=== PATIENT | male | born 1955 | race Caucasian/White ===

== ENCOUNTER → 2016-09-28 | Outpatient (CLI) | payer MEDICARE ==
[~2016-09-28] VITALS: Ht 190.5 cm; Wt 117.9 kg
[~2016-09-28] MED LIST: ASPI1TAB PO; ATOR1TAB21 PO; LIDOCAINE 2% INJ 100 MG/5 ML SDV (FOR ANES.) As Ordered ONE; MAGN64TASA PO; NS 1,000 ML IV ONE; PEPC1TAB4 PO; PROPOFOL 500 MG/50 ML VIAL As Ordered ONE; VALS1TAB47 PO; metoprolol xl PO
--- NOTE | 2016-09-28 11:52 | ROOR ---
Patient Name: Celso Higginbotham Procedure Date: 09/28/2016 11:34 AM Date of : 1955 Age: 60 Room: [facility] Gender: Male Note Status: Finalized Procedure: Upper GI endoscopy Indications: Epigastric abdominal pain Providers: Nemesio De Leon MD Referring MD: NIKOLAI PEOPLES DO Requesting Provider: Medicines: Monitored Anesthesia Care Complications: No immediate complications. Procedure: Pre-Anesthesia Assessment: - The heart rate, respiratory rate, oxygen saturations, blood pressure, adequacy of pulmonary ventilation, and response to care were monitored throughout the procedure. The Endoscope was introduced through the mouth, and advanced to the second part of duodenum. The upper GI endoscopy was accomplished without difficulty. The patient tolerated the procedure well. Findings: The Z-line was regular and was found 40 cm from the incisors. Evidence of a previous surgical anastomosis was found in the gastric antrum. This was characterized by erythema and an intact staple line. The exam of the duodenum was otherwise normal. Impression: - Z-line regular, 40 cm from the incisors. - A previous surgical anastomosis was found, characterized by erythema and an intact staple line. - No specimens collected. - The examination was otherwise normal. Recommendation: - Patient has a contact number available for emergencies. The signs and symptoms of potential delayed complications were discussed with the patient. Return to normal activities tomorrow. Written discharge instructions were provided to the patient. - Discharge patient to home. - Continue present medications. - Return to referring physician. - The findings and recommendations were discussed with the patient's family. Nemesio De Leon MD Nemesio De Leon MD 09/28/2016 11:52:02 AM This report has been signed electronically. Number of Addenda: 0 Note Initiated On: 09/28/2016 11:34 AM Estimated Blood Loss: Estimated blood loss: none.
--- NOTE | 2016-09-28 12:20 | ROOR ---
Patient Name: Celso Higginbotham Procedure Date: 09/28/2016 11:35 AM Date of : 1955 Age: 60 Room: [facility] Gender: Male Note Status: Finalized Procedure: Colonoscopy to Cecum + Cold Snare Polypectomy + [place] Indications: High risk colon cancer surveillance: Personal history of colonic polyps, Last colonoscopy: 2014 Providers: Nemesio De Leon MD Referring MD: INKOLAI PEOPLES DO Requesting Provider: Medicines: Monitored Anesthesia Care Complications: No immediate complications. Procedure: Pre-Anesthesia Assessment: - The heart rate, respiratory rate, oxygen saturations, blood pressure, adequacy of pulmonary ventilation, and response to care were monitored throughout the procedure. The Colonoscope was introduced through the anus and advanced to the cecum, identified by appendiceal orifice and ileocecal valve. The colonoscopy was performed without difficulty. The patient tolerated the procedure well. The quality of the bowel preparation was excellent. Findings: The perianal and digital rectal examinations were normal. Non-bleeding internal hemorrhoids were found during retroflexion. The hemorrhoids were small and Grade I (internal hemorrhoids that do not prolapse). Scattered small-mouthed diverticula were found in the recto-sigmoid colon, sigmoid colon and descending colon. A medium polyp was found at 10 cm proximal to the anus. The polyp was sessile. The polyp was removed with a cold snare. Resection and retrieval were complete. Multiple sessile polyps were found at 40 cm proximal to the anus. The polyps were medium in size. These polyps were removed with a cold snare. Resection and retrieval were complete. To prevent bleeding after the polypectomy, three hemostatic clips were successfully placed (MR conditional). There was no bleeding at the end of the procedure. A medium polyp was found at 50 cm proximal to the anus. The polyp was sessile. The polyp was removed with a cold snare. Resection and retrieval were complete. A medium polyp was found at 30 cm proximal to the anus. The polyp was sessile. The polyp was removed with a cold snare. Resection and retrieval were complete. The exam was otherwise without abnormality on direct and retroflexion views. Impression: - Non-bleeding internal hemorrhoids. - Diverticulosis in the recto-sigmoid colon, in the sigmoid colon and in the descending colon. - One medium polyp at 10 cm proximal to the anus, removed with a cold snare. Resected and retrieved. - Multiple medium polyps at 40 cm proximal to the anus, removed with a cold snare. Resected and retrieved. Clips (MR conditional) were placed. - One medium polyp at 50 cm proximal to the anus, removed with a cold snare. Resected and retrieved. - One medium polyp at 30 cm proximal to the anus, removed with a cold snare. Resected and retrieved. - The examination was otherwise normal on direct and retroflexion views. - The exam was otherwise normal to the cecum. Recommendation: - Patient has a contact number available for emergencies. The signs and symptoms of potential delayed complications were discussed with the patient. Return to normal activities tomorrow. Written discharge instructions were provided to the patient. - High fiber diet. - Discharge patient to home. - Continue present medications. - Await pathology results. - Telephone GI clinic for pathology results in 1 week. - Repeat colonoscopy for surveillance based on pathology results. - Return to referring physician. - The findings and recommendations were discussed with the patient's family. Nemesio De Leon MD Nemesio De Leon MD 09/28/2016 12:20:17 PM This report has been signed electronically. Number of Addenda: 0 Note Initiated On: 09/28/2016 11:35 AM Estimated Blood Loss: Estimated blood loss: none.
[2016-09-28 12:52] VITALS: BP 150/83
== END ==
LOC: M OPP 10:53
PROVIDERS: ATTEND Internal Medicine Gastroenterology
DX: Z12.11 Encounter for screening for malignant neoplasm of colon (principal); Z86.010 Personal history of colon polyps; Z80.0 Family history of malignant neoplasm of digestive organs; D12.6 Benign neoplasm of colon, unspecified; K57.30 Diverticulosis of large intestine without perforation or abscess without bleeding; K64.0 First degree hemorrhoids; R10.13 Epigastric pain; Z98.0 Intestinal bypass and anastomosis status; I10 Essential (primary) hypertension; E78.00 Pure hypercholesterolemia, unspecified; Z98.84 Bariatric surgery status; F17.200 Nicotine dependence, unspecified, uncomplicated; Z79.82 Long term (current) use of aspirin; Z79.899 Other long term (current) drug therapy; Z88.0 Allergy status to penicillin

== ENCOUNTER 2017-03-29 23:31 | Emergency (ER) | payer MEDICARE ==
[~2017-03-29] VITALS: Ht 190.5 cm; Wt 118.2 kg
[~2017-03-29 23:31] MED LIST changes: -LIDOCAINE 2% INJ 100 MG/5 ML SDV (FOR ANES.) As Ordered ONE; -NS 1,000 ML IV ONE; -PROPOFOL 500 MG/50 ML VIAL As Ordered ONE
[2017-03-29 23:40] VITALS: BP 198/91
[2017-03-29] MEDS ORDERED: IBUP-1022 PO (23:51)
[2017-03-30] MEDS ORDERED: NORCOTAB PO (00:26)
[2017-03-30] MEDS ORDERED: NORCO, ANEXSIA 5/325MG TABLET (HYDROcodone/ACETAMINOPHEN) PO ONE (00:30)
== END 2017-03-30 00:37 | disposition home or self-care (01) ==
LOC: M ED 23:31
DX: G56.02 Carpal tunnel syndrome, left upper limb (principal); F17.210 Nicotine dependence, cigarettes, uncomplicated

== ENCOUNTER → 2020-01-24 | Outpatient (CLI) | payer MEDICARE ==
[~2020-01-24] MED LIST changes: -ASPI1TAB PO; +ASPI81TA26 PO; +HYDR-3715 PO; +HYDR12CA PO; +IBUP-1022 PO; +METO1TAB33 PO; +PARO10TA3 PO; -PEPC1TAB4 PO; +PEPC1TAB5 PO; -VALS1TAB47 PO; +VALS1TAB67 PO
--- NOTE | 2020-02-14 09:34 | REP ---
LOW-DOSE LUNG SCREENING EXAM CLINICAL: Nicotine dependence. TECHNIQUE: Axial noncontrast images from the thoracic inlet to the upper abdomen using low-dose technique. COMPARISON: 10/03/2018. FINDINGS: The bilateral lung reynolds are well-aerated, symmetric, and essentially clear. No consolidation, significant nodule, or mass lesion. No effusion. Tracheobronchial tree is patent. Limited evaluation of the mediastinum demonstrates atherosclerotic changes to the thoracic aorta and coronary arteries. IMPRESSION: Lung-RADS Category 1 no suspicious abnormalities are appreciated. Management and recommendations include annual low-dose surveillance. MTDD
== END ==
LOC: M RAD 13:02
PROVIDERS: ATTEND Family Medicine
DX: Z72.0 Tobacco use (principal)

== ENCOUNTER → 2021-02-28 | Outpatient (CLI) | payer MEDICARE ==
[~2021-02-28] MED LIST changes: +AMLO2.5T3 PO; +IRBE300T12 PO
== END ==
LOC: M LABSMTC 10:30
PROVIDERS: ATTEND Anesthesiology
DX: Z01.812 Encounter for preprocedural laboratory examination (principal); Z20.822 Contact with and (suspected) exposure to COVID-19

== ENCOUNTER 2021-03-05 09:14 | Day surgery (SDC) | payer MEDICARE ==
[~2021-03-05] VITALS: Ht 190.5 cm; Wt 117.0 kg
[~2021-03-05 09:14] MED LIST changes: +NS 1,000 ML IV ONE
--- OUTSIDE RECORDS SUMMARY | 2021-03-05 09:18 | CCD | Continuity of Care Document ---
Author Author Celso PEOPLES D.O. 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 Onset: 11/25/2001 Hyperlipidemia Kaushik Peoples D.O., FAAFP Onset: 06/17 Backache Kaushik Peoples D.O., FAAFP Onset: 04/16 Tobacco user Kaushik Peoples D.O., FAAFP Onset: 04/16 Benign essential hypertension Ryan Sepulveda, RPA Onset: 12/31/2011 Gastroesophageal reflux disease Kaushik Peoples D.O., FAAFP Onset: 06/17/2012 Steatosis of liver Kaushik Peoples D.O., FAAFP Onset: 01/2015 Recurrent depression Kaushik Peoples D.O., FAAFP Onset: 08/2019 Social History Type Date Description Comments Sex Unknown Tobacco Use Start: Unknown End: Unknown Former Cigar ette Smoker 1 1/2 Packs Daily Tobacco Use Start: Unknown End: Unknown Quit at age 56 Tobacco Use Start: Unknown , smoked for 42 years. ETOH Use Occasionally consumes beer Recreational Drug Use Never Used Drugs Tobacco Use Start: Unknown Patient is a current smoker, smo kes every day pk a day Smoking Status Reviewed: 08/15/20 Patient is a current smoker, smokes every day pk a day Allergies, Adverse Reactions, Alerts Active Allergies Reaction Severity Comments Date Penicillin Per PT,When He Was Young Had A Problem 03/23/2002 Medications Active Medications SIG Qnty Indications Ordering Provide r Date [employer] Covid-19 Vaccine 30mcg/0.3ML Suspension botH Kaushik Peoples D.O., FAAFP 08/15/2020 Amlodipine Besylate 2.5mg Tablets 1 by mouth every day 90tabs Kaushik Peoples D.O., FAAFP Sildenafil Citrate 100mg Tablets 1 by mouth every day as needed 14tabs Kaushik Peoples D.O., FAAFP 06/21/2019 Fluocinolone Acetonide 0.01% Cream apply small amount to rash left ankle lightly twice daily 60gm Kaushik Peoples D.O., FAAFP 01/30/2019 Shingrix 50mcg/0.5ML Suspension Re c recieved 1 inj 03/2019 as directed intial then repeat 77 88j 1units Kaushik Peoples D.O. , FAAFP 09/22/2018 Irbesartan-Hydrochlorothiazide 300-12.5mg Tablets 1 by mouth every day 90tabs Kaushik Peoples D.O ., FAAFP 12/28/2017 Paxil 10mg Tablets one by mouth daily 90tabs Kaushik Peoples D.O., FAAFP 04/29/2017 Atorvastatin Calcium 20mg Tablets 1 by mouth every day mdd 1 90tabs Kaushik Peoples D.O., FAA FP 01/26/2013 Famotidine 20mg Tablets take 1 tablet by mouth twice daily 180tabs Kaushik Peoples D.O., FAAFP 0 07/27/2012 Metoprolol Succinate ER 100mg Tablets ER 24HR take 1 tablet by mouth once daily 90tabs Kaushik Peoples D.O., FAAFP 11/21/2010 Asa 81mg take one tablet mona ly. Unknown History Medications Hydrocodone-Ibuprofen 7.5-200mg Ta blets 1 by mouth bid/prn (#[id number]) 30tabs Scot Frazier, FAAFP 07/11/2020 - 07/11/2020 Hydrocodone-Acetaminophen 7.5-325mg Tablets 1 tab by mouth three times a day as need ed for pain. do not drive or operate equipment if taking ([id number]) 21tabs Kaushik Peoples D.O., FAAFP 07/11/2020 - 08/15/2020 Butalbital/Acetaminophen/Caffeine 50-325-40mg Capsules 1-2 po tid 30caps Kaushik Peoples D.O., FAAFP 07/10/2020 - 07/11/2020 Immunizations CPT Code Status Date Vaccine Lot # [id number] Given 02/01/2020 Influenza Virus Vaccine, Quadrivalent, Slit Virus, Im Use 3Y & Up [id number] 56407 Given 02/17/2018 Influenza Virus Vaccine, Quadrivalent, Slit Virus, Im Use 3Y & Up [id number] 61058 Given 01/14/2017 Influenza Virus Vaccine, Quadrivalent, Slit Virus, Im Use 3Y & Up [id number] 74870 Given 04/30/2016 Influenza Virus Vaccine, Quadrivalent, Slit Virus, Im Use 3Y & Up [id number] 14161 Given 03/05/2015 Influenza Vaccin e (Fluzone) 3Yrs Of Age Or Older Medicare Plans [id number] 04222 Given 05/03/2014 Pneumococcal Immunization K0 13316 Q2037 Given 01/30/2014 Influenza Vaccin e (Fluvirin) 3Yrs Of Age Or Older Medicare Plans [id number] 40155 Given 02/02/2013 Influenza Vaccin e (Fluzone) 3Yrs Of Age Or Older Medicare Plans 65045 Given 02/02/2013 Influenza Virus Vac. Split Virus Individuals 3 Years And Above [id number] 19712 Given 03/17/2012 Influenza Virus Vac. Split Virus Individuals 3 Years And Above [id number] 29209 Given 02/23/2011 Influenza Virus Vac. Split Virus Individuals 3 Years And Above [id number] 17656 Given 03/27/2010 Influenza Virus Vac. Split Virus Individuals 3 Years And Above [id number] Vital Signs Date Vital Result Comment 11/28/2020 8:50am BP Systolic 126 mmHg BP Diastolic 82 mmHg Body Temperature 98.0 F Heart Rate 78 /min Respiratory Rate 16 /min Height 75 inches 6'3" Weight 263.00 lb Mccormick Body Weight 196 lb BMI (Body Mass Index) 32.9 kg/m2 O2 % BldC Oximetry 98 % 08/15/2020 8:47am BP Systolic 132 mmHg BP Diastolic 84 mmHg Body Temperature 97.8 F Heart Rate 68 /min Respiratory Rate 16 /min Height 75 inches 6'3" Weight 263.00 lb Mccormick Body Weight 196 lb BMI (Body Mass Index) 32.9 kg/m2 O2 % BldC Oximetry 97 % Results Test Acquired Date Facility Test Result H/L Range Note CBC 11/28/2020 [facility] WBC 6.1 10E3/uL 4.1 - 10.9 1 RBC 4.53 10E6/uL 4.20 - 6.30 HGB 13.6 g/dL 12.0 - 18.0 HCT 41.0 % 37.0 - 51.0 MCV 90.5 fL 80.0 - 97.0 MCH 30.0 pg 26.0 - 32.0 MCHC 33.2 g/dL 31.0 - 36.0 PLT 190 10E3/uL 140 - 440 RDW-CV 12.8 % 11.5 - 14.5 Lym% 26.9 % 10.0 - 58.5 Neut% 65.1 % 37.0 - 92.0 MXD% 8.0 % 0.1 - 24.0 Lym# 1.6 10E3/uL 0.6 - 4.1 Neut# 4.0 % 2.0 - 7.8 MXD# 0.5 10E3/uL 0.0 - 1.8 MPV 10.2 fL 9.0 - 13.0 CMP 11/28/2020 [facility] Glu 126 mg/dL High 70 - 110 BUN 22 mg/dL 8 - 23 Creat 0.7 mg/dL 0.7 - 1.2 BUN/Creatinine Ratio 31.6 CALC Na 137 mmol/L 136 - 145 K 4.1 mmol/L 3.5 - 5.1 CL 102.9 mmol/L 98.0 - 107.0 Co2 23.2 mmol/L 22.0 - 29.0 CA 9.1 mg/dL 8.6 - 10.2 TP 6.8 g/dL 6.6 - 8.7 Alb 4.0 g/dL 3.5 - 5.2 A/G Ratio 1.4 CALC Globulin 2.8 CALC Alp 113.2 U/L 40 - 129 Alt (SGPT) 38 U/L 0 - 41 Ast (Sgot) 31 U/L 0 - 40 Tbili 0.39 mg/dL 0.0 - 1.2 Osmolality-Calculated 279.6 CALC Anion Gap 15 mmol/L eGFR 113 # Calc 2 eGFR Non-Afr. English 98 # Calc 3 Lipid Panel 11/28/2020 [facility] Chol 156 mg/dL 0 - 200 Trig 298 mg/dL High 35 - 200 HDL 39 mg/dL 35 - 55 LDL_C 58 Calc Low 75 - 129 Cho/HDL Ratio 4.0 CALC Laboratory test finding 11/28/2020 [facility] CK 95 U/L 39 - 308 Laboratory test finding 11/28/2020 [facility] Hemoglobin A1c 5.9 % 4.50-6.20 U/A DIP FPA 11/28/2020 [facility]so ci[facility] Color Urine YELLOW Yellow Appearance CLEAR Clear Specific [place] 1.030 1.00-1.03 PH Urine 5.5 5.0-8.0 Glucose Urine NEG Negative Bilirubin Urine NEG Negative Ketones NEG Negative Blood Urine NEG Negative Protein Urine 3+ High Negative Urobilinogen .2 EU/dl 0.2-1.0 Nitrite NEG Negative Leukocytes NEG Negative Microalb/Creat Ratio 08/15/2020 [facility] Alb 150 mg/L Creatinine, Urine 200 mg/dL 10 - 300 A/C Ratio 30 - 300 mg/g % Abnormal CBC 08/15/2020 [facility] WBC 7.3 10E3/uL 4.1 - 10.9 RBC 4.59 10E6/uL 4.20 - 6.30 HGB 14.1 g/dL 12.0 - 18.0 HCT 41.2 % 37.0 - 51.0 MCV 89.8 fL 80.0 - 97.0 MCH 30.7 pg 26.0 - 32.0 MCHC 34.2 g/dL 31.0 - 36.0 PLT 179 10E3/uL 140 - 440 RDW-CV 12.5 % 11.5 - 14.5 Lym% 24.3 % 10.0 - 58.5 Neut% 66.6 % 37.0 - 92.0 MXD% 9.1 % 0.1 - 24.0 Lym# 1.8 10E3/uL 0.6 - 4.1 Neut# 4.8 % 2.0 - 7.8 MXD# 0.7 10E3/uL 0.0 - 1.8 MPV 10.3 fL 9.0 - 13.0 CMP 08/15/2020 [facility] Glu 130 mg/dL High 70 - 110 BUN 19 mg/dL 8 - 23 Creat 0.7 mg/dL 0.7 - 1.2 BUN/Creatinine Ratio 27.0 Calc Na 137 mmol/L 136 - 145 K 4.1 mmol/L 3.5 - 5.1 CL 99.8 mmol/L 98.0 - 107.0 Co2 26.4 mmol/L 22.0 - 29.0 CA 9.4 mg/dL 8.6 - 10.2 TP 7.3 g/dL 6.6 - 8.7 Alb 4.3 g/dL 3.5 - 5.2 A/G Ratio 1.4 Calc Globulin 3.0 Calc Alp 140.9 U/L High 40 - 129 Alt (SGPT) 34 U/L 0 - 41 Ast (Sgot) 24 U/L 0 - 40 Tbili 0.41 mg/dL 0.0 - 1.2 Osmolality-Calculated 277.1 Calc Anion Gap 15 mmol/L eGFR 113 # Calc 4 eGFR Non-Afr. English 98 # Calc 5 Lipid Panel 08/15/2020 [facility] Chol 167 mg/dL 0 - 200 Trig 356 mg/dL High 35 - 200 HDL 40 mg/dL 35 - 55 LDL_C 56 Calc Low 75 - 129 Cho/HDL Ratio 4.2 Calc Laboratory test finding 08/15/2020 [facility] CK 83 U/L 39 - 308 Hemoglobin A1c 5.9 % 4.40 - 6.10 U/A DIP FPA 08/15/2020 [facility] Asso ciates Color Urine YELLOW Yellow Appearance CLEAR Clear Specific [place] 1.030 1.00-1.03 PH Urine 6.0 5.0-8.0 Glucose Urine NEG Negative Bilirubin Urine NEG Negative Ketones NEG Negative Blood Urine NEG Negative Protein Urine 3+ High Negative Urobilinogen .2 EU/dl 0.2-1.0 Nitrite NEG Negative Leukocytes NEG Negative 1 NORMAL RANGES Age WBC RBC HGB HCT MCV PLT Adult M 4.1-10.9 4.20-6.30 12.0-18.0 37.0-51.0 80-97 140-440 Adult F 4.1-10.9 4.04-5.48 12.0-18.0 37.0-51.0 80-97 140-440 0 -1 Yr 5.0-20.0 3.9-5.9 15-18 MV: 44 MV: 91 MV: 277 2-9 Yr. 6.0-17.0 3.8-5.4 11-13 MV: 37 MV: 78 MV: 300 10 Yrs. 5.0-13.0 3.8-5.4 12-15 MV: 39 MV: 80 MV: 250 NOTE: * FOR ADULT BLACK MALES AND FEMALES, NORMAL WBC IS 2.9-7.7 K/ML * FOR ADULT BLACK MALES AND FEMALES, NORMAL RBC,HGB, AND HCT IS 5% LESS SOURCE FOR DATA: [employer] 1800 OPERATION MANUAL( AUTOMATED BLOOD COUNTS AND DIFF.) APPENDIX B-3 CHRONIC KIDNEY DISEASE STAGING PER NKF: MALE GFR INTERPRETATION: 20-49 YRS: >60 mL/min Normal 50-59 YRS: >56 mL/min Normal 60-69 YRS: >49 mL/min Normal 70-79 YRS: >42 mL/min Normal 80 and above >35 mL/min Normal FEMALE GRF INTERPRETATION: 20-39 YRS: >60 mL/min Normal 40-49 YRS: >58 mL/min Normal 50-59 YRS: >51 mL/min Normal 60-69 YRS: >45 mL/min Normal 70-79 YRS: >39 mL/min Normal 80 and above >32 mL/min NormalCLASSIFICATION CHOLESTEROL FOR ADULTS CHILDREN/ADOLESCENTS* DESIRABLE: <200 MG/DL <170 MG/DL BORDER-LINE HIGH RISK: 200-239 MG/DL 170-199 MG/DL HIGH RISK: >240 MG/DL >200 MG/DL CLASS. FOR PRIMARY LDL CHOL PREVENTION: LDL CHOL-CHILD/ADOLESCENTS* DESIRABLE: <130 MG/DL <110 MG/DL BORDERLINE-HIGH RISK: 130-159 MG/DL 110-129 MG/DL HIGH RISK: >160 MG/DL >130 MG/DL *CHILDREN AND ADOLESCENTS REPRESENTS INDIVIDUALA AGED 2-19 YEARS EXCLUSIVE. 2 CKD-EPI 3 CKD-EPI 4 CKD-EPI 5 CKD-EPI Procedures Date Code Description Status 11/28/2020 72043 Office/Outpatient Established Mo d MDM 30-39 Min Completed 08/15/2020 52825 Office/Outpatient Established Mo d MDM 30-39 Min Completed 07/19/2020 69878 Office/Outpatient Established Lo w MDM 20-29 Min Completed 07/10/2020 51942 Office/Outpatient Established Lo w MDM 20-29 Min Completed Medical Devices Description No Information Available Encounters Type Date Location Provider Dx Diagnosis Office Visit 11/28/2020 8:45a [place] [facility] Geno Frazier, FAAFP R73.01 Impaired fasting glucose E78.5 Hyperlipidemia, unspecified I10 Essential (primary) hyperten jarad K21.9 Gastro-esophageal reflux dis ease without esophagitis Z72.0 Tobacco use F33.8 Other recurrent depressive d isorders Office Visit 08/15/2020 8:45a [place] [facility] Geno Frazier, FAAFP R73.01 Impaired fasting glucose E78.5 Hyperlipidemia, unspecified I10 Essential (primary) hyperten jarad K21.9 Gastro-esophageal reflux dis ease without esophagitis Z72.0 Tobacco use F33.8 Other recurrent depressive d isorders Office Visit 07/19/2020 11:15a [place] [facility] Ryan Sepulveda, RP A S23.41xS Sprain of ribs, sequela Office Visit 07/10/2020 10:20a [place] [facility] Ryan Sepulveda, RP A S23.41xA Sprain of ribs, initial encounter M25.512 Pain in left shoulder Assessments Date Code Description Provider 11/28/2020 R73.01 Impaired fasting glucose Kaushik Peoples D.O., FAAFP 11/28/2020 E78.5 Hyperlipidemia, unspecified Flip Peoples D.O., FAAFP 11/28/2020 I10 Essential (primary) hypertension Kaushik Peoples D.O., FAAFP 11/28/2020 K21.9 Gastro-esophageal reflux disease without esophagitis Kaushik Peoples D.O., FAAFP 11/28/2020 Z72.0 Tobacco use Kaushik Peoples D.O., FAAFP 11/28/2020 F33.8 Other recurrent depressive disor ders Kaushik Peoples D.O., FAAFP 08/15/2020 R73.01 Impaired fasting glucose Kaushik Peoples D.O., FAAFP 08/15/2020 E78.5 Hyperlipidemia, unspecified Flip Peoples D.O., FAAFP 08/15/2020 I10 Essential (primary) hypertension Kaushik Peoples D.O., FAAFP 08/15/2020 K21.9 Gastro-esophageal reflux disease without esophagitis Kaushik Peoples D.O., FAAFP 08/15/2020 Z72.0 Tobacco use Kaushik Peoples D.O., FAAFP 08/15/2020 F33.8 Other recurrent depressive disor ders Kaushik Peoples D.O., FAAFP 07/19/2020 S23.41xS Sprain of ribs, sequela Ryan Sepulveda, RPA 07/10/2020 S23.41xA Sprain of ribs, initial encounte r Ryan Sepulveda, RPA 07/10/2020 M25.512 Pain in left shoulder Lawanda Sepulveda, RPA Plan of Treatment Future Appointment(s):* 03/04/2021 8:45 am - Kaushik Peoples D.O., [facility] at [place] [facility] Functional Status Description No Information Available Mental Status Description No Information Available Referrals Description No Information Available
--- OUTSIDE RECORDS SUMMARY | 2021-03-05 09:18 | CCD | Continuity of Care Document ---
Author Author Celso DE LEON M.D. 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 Onset: 10/14/2017 Abdominal pain Nemesio De Leon M.D. Onset: 09/04/19 17 Social History Type Date Description Comments Sex Unknown ETOH Use Occasionally Tobacco Use Start: Unknown Patient is a current smoker, smo kes every day Tobacco Use Start: Unknown Heavy tobacco smoker (more than 10 cigarettes/day) Allergies, Adverse Reactions, Alerts Active Allergies Criticality Reaction | Severity Comments Date Penicillin Unable to assess criticality 09/03/2016 Medications Active Medications SIG Qnty Indications Ordering Provide r Date [employer] [id number] Tablets as directed 1box Nemesio De Leon M.D. 01/07/2021 Famotidine 20mg Tablets Unknown Metoprolol Succinate ER 100mg Tablets ER 24HR Unknown Atorvastatin Calcium 20mg Tablets Unknown Aspirin 81mg Tablets DR Unknown Paroxetine HCL 10mg Tablets Unknown Hydrochlorothiazide 12.5mg Capsules Unknown Irbesartan-Hydrochlorothiazide 300-12.5mg Tablets Take 1 Tablet By Mouth Once Daily . DO Not Exceed 1 Per 24 Hours Unknown Amlodipine Besylate 2.5mg Tablets Take 1 Tablet By Mouth Once Daily Unknown Immunizations Description No Information Available Vital Signs Date Vital Result Comment 01/07/2021 2:52pm Height 75 inches 6'3" Weight 264.00 lb BP Systolic 132 mmHg BP Diastolic 79 mmHg Heart Rate 63 /min BMI (Body Mass Index) 33.0 kg/m2 Weight 119.750 kg Body Temperature 97.0 F 10/14/2017 10:21am Height 75 inches 6'3" Weight 259.00 lb BP Systolic 130 mmHg BP Diastolic 79 mmHg Heart Rate 89 /min BMI (Body Mass Index) 32.4 kg/m2 Weight 117.482 kg Results Description No Information Available Procedures Date Code Description Status 01/07/2021 54352 Office/Outpatient New Low MDM 30 -44 Minutes Completed Medical Devices Description No Information Available Encounters Type Date Location Provider Dx Diagnosis Office Visit 01/07/2021 2:30p Main Office Nemesio De Leon M.D. Z 86.010 Personal history of colonic polyps Assessments Date Code Description Provider 01/07/2021 Z86.010 Personal history of colonic poly ps Nemesio De Leon M.D. Plan of Treatment Future Appointment(s):* 03/05/2021 12:30 pm - Nemesio De Leon M.D. at Main Office 01/07/2021 - Nemesio De Leon M.D.* Z86.010 Personal history of colonic polyps* Comments:* 65 yo wm who presents for a colonoscopy due to a h/o colonic polyps. Last scope was in 2018. No c/o abdominal pain, weight loss, change in bowel habits, or rectal bleeding. No family h/o colon cancer. No h/o chest pain, or sob. Plan:1.Schedule patient for Colonoscopy. 2. Informed consent given.3. Advised to stop asa, plavix,and anticoagulation 3 to 7 days prior to the procedures. Functional Status Description No Information Available Mental Status Description No Information Available Referrals Description No Information Available
--- OUTSIDE RECORDS SUMMARY | 2021-03-05 09:18 | CCD ---
Continuity of Care Document (CCD) Created on: 03/04/2021 Celso Wood External Reference #: [id number] : [id number] Sex: Male Author Author Celso PEOPLES D.O. Organization Unknown Address [address] [place] [id number] Phone [phone] Care Team Providers Care Spectroscopist Name Role Phone [facility] - Orthopedic/Phys/Osteo AUTM [phone] Problems Active Problems Provider Date Psoriasis Jovan [...] day pk a day Smoking Status Reviewed: 03/04/21 Patient is a current smoker, smokes every day pk a day Allergies and adverse reactions Active Allergies Criticality Reaction | Severity Comments Date Penicillin Unable to assess criticality Per PT,When He Was Young Had A Problem 03/23/2002 Medications Active Medications SIG Qnty Indications Ordering Provide r Date Ginx Covid-19 Vaccine 30mcg/0.3ML Suspension botH had booster Kaushik Peoples D.O., FAAFP 08/15/2020 Amlodipine Besylate [...] Tablets 1 by mouth every day 90tabs Lizet Frazier, FAAFP 12/28/2017 Paxil 10mg Tablets one by [...] 81mg take one tablet mona ly. Unknown Immunizations CPT Code Status Date Vaccine Lot # [id number] Given 03/04/2021 Influenza Virus Vaccine, Quadrivalent, Slit Virus, Im Use 3Y & Up 81230 Given 02/01/2020 Influenza Virus Vaccine, Quadrivalent, Slit Virus, Im Use 3Y & Up [id number] 35579 Given 02/17/2018 Influenza Virus Vaccine, Quadrivalent, Slit Virus, Im Use 3Y & Up [id number] 64036 Given 01/14/2017 Influenza Virus Vaccine, Quadrivalent, Slit Virus, Im Use 3Y & Up [id number] 55950 Given 04/30/2016 Influenza Virus Vaccine, Quadrivalent, Slit Virus, Im Use 3Y & Up [id number] 33381 Given 03/05/2015 Influenza Vaccin e (Fluzone) 3Yrs Of Age Or Older Medicare Plans [id number] 77402 Given 05/03/2014 Pneumococcal Immunization [id number] Q2037 Given 01/30/2014 Influenza Vaccin e (Fluvirin) 3Yrs Of Age Or Older Medicare Plans [id number] 42983 Given 02/02/2013 Influenza Vaccin e (Fluzone) 3Yrs Of Age Or Older Medicare Plans 69862 Given 02/02/2013 Influenza Virus Vac. Split Virus Individuals 3 Years And Above [id number] 60273 Given 03/17/2012 Influenza Virus Vac. Split Virus Individuals 3 Years And Above [id number] 86850 Given 02/23/2011 Influenza Virus Vac. Split Virus Individuals 3 Years And Above [id number] 67459 Given 03/27/2010 Influenza Virus Vac. Split Virus Individuals 3 Years And Above [id number] Vital Signs Date Vital Result Comment 03/04/2021 8:51am BP Systolic 142 mmHg BP Diastolic 82 mmHg Body Temperature 97.7 F Heart Rate 82 /min Respiratory Rate 16 /min Height 75 inches 6'3" Weight 262.00 lb [place] Body Weight 196 lb BMI (Body Mass Index) 32.7 kg/m2 O2 % BldC Oximetry 97 % 11/28/2020 8:50am BP Systolic 126 mmHg BP Diastolic 82 mmHg Body Temperature 98.0 F Heart Rate 78 /min Respiratory Rate 16 /min Height 75 inches 6'3" Weight 263.00 lb [place] Body Weight 196 lb BMI (Body Mass Index) 32.9 kg/m2 O2 % BldC Oximetry 98 % Results Test Acquired Date Facility Test Result H/L Range Note Laboratory test finding 03/04/2021 [facility] CK <pending> CBC 11/28/2020 [facility] WBC 6.1 10E3/uL 4.1 [...] eGFR 113 # Calc 2 eGFR Non-Afr. Colombian 98 # Calc 3 Lipid Panel 11/28/2020 [facility] Chol 156 mg/dL 0 - 200 Trig 298 mg/dL High 35 - 200 HDL 39 mg/dL 35 - 55 LDL_C 58 Calc Low 75 - 129 Cho/HDL Ratio 4.0 CALC Laboratory test finding 11/28/2020 [facility] CK 95 U/L 39 - 308 Laboratory test finding 11/28/2020 [facility] Hemoglobin A1c 5.9 % 4.50-6.20 U/A DIP [facility] 11/28/2020 [facility] Color Urine YELLOW Yellow Appearance CLEAR Clear Specific [place] 1.030 1.00-1.03 PH Urine 5.5 5.0-8.0 Glucose [...] HCT IS 5% LESS SOURCE FOR DATA: [employer] DYN 1800 OPERATION MANUAL( AUTOMATED BLOOD COUNTS AND [...] 2-19 YEARS EXCLUSIVE. 2 CKD-EPI 3 CKD-EPI Procedures Date Code Description Status 03/04/2021 77606 Office/Outpatient Established Mo d MDM 30-39 Min Completed 11/28/2020 65952 Office/Outpatient Established Mo d MDM 30-39 Min Completed Medical Devices Description No Information Available Encounters Type Date Location Provider Dx Diagnosis Office Visit 03/04/2021 8:45a [facility] Geno Frazier, FAAFP E78.5 Hyperlipidemia, unspecified I10 Essential (primary) hyperten jarad K21.9 Gastro-esophageal reflux dis ease without esophagitis Z72.0 Tobacco use F33.8 Other recurrent depressive d isorders Office Visit 11/28/2020 8:45a [facility] Geno Frazier, FAAFP R73.01 Impaired fasting glucose E78.5 Hyperlipidemia, unspecified I10 Essential (primary) hyperten jarad K21.9 Gastro-esophageal reflux dis ease without esophagitis Z72.0 Tobacco use F33.8 Other recurrent depressive d isorders Assessments Date Code Description Provider 03/04/2021 E78.5 Hyperlipidemia, unspecified Flip Peoples D.O., [facility] 03/04/2021 I10 Essential (primary) hypertension Kaushik Peoples D.O., [facility] 03/04/2021 K21.9 Gastro-esophageal reflux disease without esophagitis Kaushik Peoples D.O., [facility] 03/04/2021 Z72.0 Tobacco use Kaushik Peoples D.O., [facility] 03/04/2021 F33.8 Other recurrent depressive disor ders Kaushik Peoples D.O., [facility] 11/28/2020 R73.01 Impaired fasting glucose Kaushik Peoples D.O., [facility] 11/28/2020 E78.5 Hyperlipidemia, unspecified Flip Peoples D.O., [facility] 11/28/2020 I10 Essential (primary) hypertension Kaushik Peoples D.O., [facility] 11/28/2020 K21.9 Gastro-esophageal reflux disease without esophagitis Kaushik Peoples D.O., [facility] 11/28/2020 Z72.0 Tobacco use Kaushik Peoples D.O., [facility] 11/28/2020 F33.8 Other recurrent depressive disor ders Kaushik Peoples D.O., FAAFP Plan of Treatment Future Appointment(s):* 06/12/2021 8:45 am - Kaushik Peoples D.O., FAAFP at [facility] Functional Status Description No Information Available Mental Status Description No Information Available Referrals Description No Information Available
--- OUTSIDE RECORDS SUMMARY | 2021-03-05 09:19 | CCD ---
Author Author [facility] Organization [facility] Address Unknown Phone Unavailable Care Team Providers Care Military Nurse Name Role Phone Armen De Leon MD Unavailable Unavailable Armen De Leon MD Unavailable Unavailable Armen De Leon MD Unavailable Unavailable Armen De Leon MD Unavailable Unavailable Armen De Leon MD Unavailable Unavailable Armen De Leon MD Unavailable Unavailable Armen De Leon MD Unavailable Unavailable Armen De Leon MD Unavailable Unavailable Armen De Leon MD Unavailable Unavailable Armen De Leon MD Unavailable Unavailable Armen De Leon MD Unavailable Unavailable Armen De Leon MD Unavailable Unavailable Armen De Leon MD Unavailable Unavailable Armen De Leon MD Unavailable Unavailable Armen De Leon MD Unavailable Unavailable Armen De Leon MD Unavailable Unavailable Armen De Leon MD Unavailable Unavailable Armen De Leon MD Unavailable Unavailable Armen De Leon MD Unavailable Unavailable Armen De Leon MD Unavailable Unavailable Armen De Leon MD Unavailable Unavailable Armen De Leon MD Unavailable Unavailable Armen De Leon MD Unavailable Unavailable Armen De Leon MD Unavailable Unavailable Armen De Leon MD Unavailable Unavailable Armen De Leon MD Unavailable Unavailable Armen De Leon MD Unavailable Unavailable Moises, S Nemesio MD Unavailable Unavailable Moises, S Nemesio MD Unavailable Unavailable Moises, S Nemesio MD Unavailable Unavailable Moises, S Nemesio MD Unavailable Unavailable Moises, S Nemesio MD Unavailable Unavailable Moises, S Nemesio MD Unavailable Unavailable Moises, S Nemesio MD Unavailable Unavailable Moises, S Nemesio MD Unavailable Unavailable Moises, S Nemesio MD Unavailable Unavailable Moises, S Nemesio MD Unavailable Unavailable Moises, S Nemesio MD Unavailable Unavailable Moises, S Nemesio MD Unavailable Unavailable Moises, S Nemesio MD Unavailable Unavailable Moises, S Nemesio MD Unavailable Unavailable Moises, S Nemesio MD Unavailable Unavailable Moises, S Nemesio MD Unavailable Unavailable Moises, S Nemesio MD Unavailable Unavailable Moises, S Nemesio MD Unavailable Unavailable Moises, S Nemesio MD Unavailable Unavailable Moises, S Nemesio MD Unavailable Unavailable Moises, S Nemesio MD Unavailable Unavailable Moises, S Nemesio MD Unavailable Unavailable Moises, S Nemesio MD Unavailable Unavailable Coco, D Ryan PA Unavailable Unavailable Coco, D Ryan PA Unavailable Unavailable Coco, D Ryan PA Unavailable Unavailable Coco, D Ryan PA Unavailable Unavailable Coco, D Ryan PA Unavailable Unavailable Coco, D Ryan PA Unavailable Unavailable Coco, D Ryan PA Unavailable Unavailable Coco, D Ryan PA Unavailable Unavailable Coco, D Ryan PA Unavailable Unavailable Coco, D Ryan PA Unavailable Unavailable Coco, D Ryan PA Unavailable Unavailable Coco, D Ryan PA Unavailable Unavailable Coco, D Ryan PA Unavailable Unavailable Coco, D Ryan PA Unavailable Unavailable Coco, D Ryan PA Unavailable Unavailable Coco, D Ryan PA Unavailable Unavailable Coco, D Ryan PA Unavailable Unavailable Coco, D Ryan PA Unavailable Unavailable Coco, D Ryan PA Unavailable Unavailable Coco, D Ryan PA Unavailable Unavailable Coco, D Ryan PA Unavailable Unavailable Coco, D Ryan PA Unavailable Unavailable Coco, D Ryan PA Unavailable Unavailable Coco, D Ryan PA Unavailable Unavailable Coco, D Ryan PA Unavailable Unavailable Coco, D Ryan PA Unavailable Unavailable Coco, D Ryan PA Unavailable Unavailable Coco, D Ryan PA Unavailable Unavailable Coco, D Ryan PA Unavailable Unavailable Coco, D Ryan PA Unavailable Unavailable Coco, D Ryan PA Unavailable Unavailable Coco, D Ryan PA Unavailable Unavailable Coco, D Ryan PA Unavailable Unavailable Coco, D Ryan PA Unavailable Unavailable Coco, D Ryan PA Unavailable Unavailable Coco, D Ryan PA Unavailable Unavailable Coco, D Ryan PA Unavailable Unavailable Coco, D Ryan PA Unavailable Unavailable Coco, D Ryan PA Unavailable Unavailable Coco, D Ryan PA Unavailable Unavailable Coco, D Ryan PA Unavailable Unavailable Coco, D Ryan PA Unavailable Unavailable Coco, D Ryan PA Unavailable Unavailable Coco, D Ryan PA Unavailable Unavailable Coco, D Ryan PA Unavailable Unavailable Coco, D Ryan PA Unavailable Unavailable Coco, D Ryan PA Unavailable Unavailable Coco, D Ryan PA Unavailable Unavailable Coco, D Ryan PA Unavailable Unavailable Coco, D Ryan PA Unavailable Unavailable Coco, D Ryan PA Unavailable Unavailable Coco, D Ryan PA Unavailable Unavailable Coco, D Ryan PA Unavailable Unavailable Coco, D Ryan PA Unavailable Unavailable Coco, D Ryan PA Unavailable Unavailable Coco, D Ryan PA Unavailable Unavailable Coco, D Ryan PA Unavailable Unavailable Coco, D Ryan PA Unavailable Unavailable Coco, D Ryan PA Unavailable Unavailable Coco, D Ryan PA Unavailable Unavailable Coco, D Ryan PA Unavailable Unavailable Coco, D Ryan PA Unavailable Unavailable Coco, D Ryan PA Unavailable Unavailable Coco, D Ryan PA Unavailable Unavailable Coco, D Ryan PA Unavailable Unavailable Coco, D Ryan PA Unavailable Unavailable Coco, D Ryan PA Unavailable Unavailable Coco, D Ryan PA Unavailable Unavailable Fish, J Kaushik Unavailable Unavailable Fish, J Kaushik Unavailable Unavailable Fish, J Kaushik Unavailable Unavailable Fish, J Kaushik Unavailable Unavailable Fish, J Kaushik Unavailable Unavailable Fish, J Kaushik Unavailable Unavailable Fish, J Kaushik Unavailable Unavailable Fish, J Kaushik Unavailable Unavailable Fish, J Kaushik Unavailable Unavailable Fish, J Kaushik Unavailable Unavailable Fish, J Kaushik Unavailable Unavailable Fish, J Kaushik Unavailable Unavailable Fish, J Kaushik Unavailable Unavailable Fish, J Kaushik Unavailable Unavailable Fish, J Kaushik Unavailable Unavailable Fish, J Kaushik Unavailable Unavailable Fish, J Kaushik Unavailable Unavailable Fish, J Kaushik Unavailable Unavailable Fish, J Kaushik Unavailable Unavailable Fish, J Kauhsik Unavailable Unavailable Fish, J Kaushik Unavailable Unavailable Fish, J Kaushik Unavailable Unavailable Fish, J Kaushik Unavailable Unavailable Fish, J Kaushik Unavailable Unavailable Fish, J Kaushik Unavailable Unavailable Fish, J Kaushik Unavailable Unavailable Fish, J Kaushik Unavailable Unavailable Fish, J Kaushik Unavailable Unavailable Fish, J Kaushik Unavailable Unavailable Fish, J Kaushik Unavailable Unavailable Fish, J Kaushik Unavailable Unavailable Fish, J Kaushik Unavailable Unavailable Fish, J Kaushik Unavailable Unavailable Fish, J Kaushik Unavailable Unavailable Fish, J Kaushik Unavailable Unavailable Fish, J Kaushik Unavailable Unavailable Fish, J Kaushik Unavailable Unavailable Fish, J Kaushik Unavailable Unavailable Fish, J Kaushik Unavailable Unavailable Fish, J Kaushik Unavailable Unavailable Fish, J Kaushik Unavailable Unavailable Fish, J Kaushik Unavailable Unavailable Fish, J Kaushik Unavailable Unavailable Fish, J Kaushik Unavailable Unavailable Fish, J Kaushik Unavailable Unavailable Fish, J Kaushik Unavailable Unavailable Fish, J Kaushik Unavailable Unavailable Fish, J Kaushik Unavailable Unavailable Fish, J Kaushik Unavailable Unavailable Fish, J Kaushik Unavailable Unavailable Fish, J Kaushik Unavailable Unavailable Fish, J Kaushik Unavailable Unavailable Fish, J Kaushik Unavailable Unavailable Fish, J Kaushik Unavailable Unavailable Fish, J Kaushik Unavailable Unavailable Fish, J Kaushik Unavailable Unavailable Fish, J Kaushik Unavailable Unavailable Fish, J Kaushik Unavailable Unavailable Fish, J Kaushik Unavailable Unavailable Fish, J Kaushik Unavailable Unavailable Fish, J Kaushik Unavailable Unavailable Fish, J Kaushik Unavailable Unavailable Fish, J Kaushik Unavailable Unavailable Fish, J Kaushik Unavailable Unavailable Fish, J Kaushik Unavailable Unavailable Fish, J Kaushik Unavailable Unavailable Fish, J Kaushik Unavailable Unavailable Fish, J Kaushik Unavailable Unavailable Fish, J Kaushik Unavailable Unavailable Fish, J Kaushik Unavailable Unavailable Fish, J Kaushik Unavailable Unavailable Fish, J Kaushik Unavailable Unavailable Fish, J Kaushik Unavailable Unavailable Fish, J Kaushik Unavailable Unavailable Fish, J Kaushik Unavailable Unavailable Fish, J Kaushik Unavailable Unavailable Fish, J Kaushik Unavailable Unavailable Fish, J Kaushik Unavailable Unavailable Fish, J Kaushik Unavailable Unavailable Fish, J Kaushik Unavailable Unavailable Fish, J Kaushik Unavailable Unavailable Fish, J Kaushik Unavailable Unavailable Fish, J Kaushik Unavailable Unavailable Fish, J Kaushik Unavailable Unavailable Fish, J Kaushik Unavailable Unavailable Fish, J Kaushik Unavailable Unavailable Fish, J Kaushik Unavailable Unavailable Fish, J Kaushik Unavailable Unavailable Fish, J Kaushik Unavailable Unavailable Fish, J Kaushik Unavailable Unavailable Fish, J Kaushik Unavailable Unavailable Fish, J Kaushik Unavailable Unavailable Fish, J Kaushik Unavailable Unavailable Fish, J Kaushik Unavailable Unavailable Fish, J Kaushik Unavailable Unavailable Fish, J Kaushik Unavailable Unavailable Fish, J Kaushik Unavailable Unavailable Fish, J Kaushik Unavailable Unavailable Fish, J Kaushik Unavailable Unavailable Fish, J Kaushik Unavailable Unavailable Fish, J Kaushik Unavailable Unavailable Fish, J Kaushik Unavailable Unavailable Fish, J Kaushik Unavailable Unavailable Fish, J Kaushik Unavailable Unavailable Fish, J Kaushik Unavailable Unavailable Fish, J Kaushik Unavailable Unavailable Fish, J Kaushik Unavailable Unavailable Fish, J Kaushik Unavailable Unavailable Fish, J Kaushik Unavailable Unavailable Fish, J Kaushik Unavailable Unavailable Fish, J Kaushik Unavailable Unavailable Fish, J Kaushik Unavailable Unavailable Fish, J Kaushik Unavailable Unavailable Fish, J Kaushik Unavailable Unavailable Fish, J Kaushik Unavailable Unavailable Fish, J Kaushik Unavailable Unavailable Fish, J Kaushik Unavailable Unavailable Fish, J Kaushik Unavailable Unavailable Fish, J Kaushik Unavailable Unavailable Fish, J Kaushik Unavailable Unavailable Fish, J Kaushik Unavailable Unavailable Fish, J Kaushik Unavailable Unavailable Fish, J Kaushik Unavailable Unavailable Fish, J Kaushik Unavailable Unavailable Fish, J Kaushik Unavailable Unavailable Fish, J Kaushik Unavailable Unavailable Fish, J Kaushik Unavailable Unavailable Fish, J Kaushik Unavailable Unavailable Fish, J Kaushik Unavailable Unavailable Fish, J Kaushik Unavailable Unavailable Fish, J Kaushik Unavailable Unavailable Fish, J Kaushik Unavailable Unavailable Fish, J Kaushik Unavailable Unavailable Fish, J Kaushik Unavailable Unavailable Fish, J Kaushik Unavailable Unavailable Fish, J Kaushik Unavailable Unavailable Fish, J Kaushik Unavailable Unavailable Fish, J Kaushik Unavailable Unavailable Fish, J Kaushik Unavailable Unavailable Fish, J Kaushik Unavailable Unavailable Fish, J Kaushik Unavailable Unavailable Fish, J Kaushik Unavailable Unavailable Fish, J Kaushik Unavailable Unavailable Fish, J Kaushik Unavailable Unavailable Fish, J Kaushik Unavailable Unavailable Fish, J Kaushik Unavailable Unavailable Fish, J Kaushik Unavailable Unavailable Fish, J Kaushik Unavailable Unavailable Fish, J Kaushik Unavailable Unavailable Fish, J Kaushik Unavailable Unavailable Fish, J Kaushik Unavailable Unavailable Fish, J Kaushik Unavailable Unavailable Fish, J Kaushik Unavailable Unavailable Fish, J Kaushik Unavailable Unavailable Fish, J Kaushik Unavailable Unavailable Fish, J Kaushik Unavailable Unavailable Fish, J Kaushik Unavailable Unavailable Fish, J Kaushik Unavailable Unavailable Fish, J Kaushik Unavailable Unavailable Fish, J Kaushik Unavailable Unavailable Fish, J Kaushik Unavailable Unavailable Fish, J Kaushik Unavailable Unavailable Fish, J Kaushik Unavailable Unavailable Fish, J Kaushik Unavailable Unavailable Fish, J Kaushik Unavailable Unavailable Fish, J Kaushik Unavailable Unavailable Fish, J Kaushik Unavailable Unavailable Fish, J Kaushik Unavailable Unavailable Re-disclosure Warning The records that you are about to access may contain information from federally-assisted alcohol or drug abuse programs. If such information is present, then the following federally mandated warning applies: This information has been disclosed to you from records protected by federal confidentiality rules (42 CFR part 2). The federal rules prohibit you from making any further disclosure of this information unless further disclosure is expressly permitted by the written consent of the person to whom it pertains or as otherwise permitted by 42 CFR part 2. A general authorization for the release of medical or other information is NOT sufficient for this purpose. The Federal rules restrict any use of the information to criminally investigate or prosecute any alcohol or drug abuse patient.The records that you are about to access may contain highly sensitive health information, the redisclosure of which is protected by Article 27-F of the [facility] Public Health law. If you continue you may have access to information: Regarding HIV / AIDS; Provided by facilities licensed or operated by the [facility] Office of Mental Health; or Provided by the [facility] Office for People With Developmental Disabilities. If such information is present, then the following [facility] mandated warning applies: This information has been disclosed to you from confidential records which are protected by state law. State law prohibits you from making any further disclosure of this information without the specific written consent of the person to whom it pertains, or as otherwise permitted by law. Any unauthorized further disclosure in violation of state law may result in a fine or nursing home sentence or both. A general authorization for the release of medical or other information is NOT sufficient authorization for further disc losure. Allergies and Adverse Reactions Type Description Substance Reaction Status Data Source(s ) [facility] Family History Family Member Name Family Member Gender Family Member Status Date o f Status Description Data Source(s) Unknown Male Problem [facility] ([facility]) Unknown Female Problem [facility] ([facility] Encounters Encounter Providers Location Date Indications Data Source(s ) Outpatient Attender: Kaushik [facility] 03/04/2021 08:45:0 0 AM EDT [facility] ([facility] Outpatient Attender: Nemesio De Leon MD Main Office 01/07/2021 02:30:00 PM EDT [facility] ([facility]) Outpatient Attender: Kaushik [facility] 11/28/2020 08:45:0 0 AM EDT [facility] ([facility] Outpatient Attender: Kaushik [facility] 08/15/2020 08:45:0 0 AM EDT [facility] ([facility] Outpatient Attender: Ryan CASEY [facility] 09/2020 10:15:00 AM EST [facility] Out[facility] Attender: Ryan CASEY [facility] 09:20:00 AM EST [facility] Outpatient Attender: Kaushik FishReferrer: Kaushik ChacortaConsultant: Kaushik Chacorta 05/09/2020 02:35:00 PM EST - 05/09/2020 02:45:00 PM [facility] Outpatient Attender: Kaushik [facility]ley [facility] 05/09/2020 07:30:0 0 AM EST [facility] ([facility] Outpatient Attender: Kaushik [facility] 02/01/2020 09:00:0 0 AM EDT [facility] ([facility] Immunizations Vaccine Date Status Description Data Source(s) New in 2012. IIV4 03/04/2021 09:00:00 AM EDT completed [facility] ([facility] COVID-19 VACCINE Pfizer 02/10/2021 12:00:00 AM EDT completed [facility] Vaccine Series Complete: YESThis Data wa s Submitted to [facility] Via [employer]. COVID-19 VACCINE Pfizer 08/07/2020 12:00:00 AM EDT completed [facility] Vaccine Series Complete: YESThis Data wa s Submitted to [facility] Via [employer]. COVID-19 VACCINE Pfizer 07/17/2020 12:00:00 AM EST completed [facility] Vaccine Series Complete: NOThis Data was Submitted to [facility] Via [employer]. New in 2012. IIV4 02/01/2020 09:30:00 AM EDT completed [facility] ([facility] Medications Medication Brand Name Start Date Product Form Dose Route Admi nistrative Instructions Pharmacy Instructions Status Indications Reaction Description Data Source(s) Sutab Sutab 01/07/2021 12:00:00 AM EDT active [facility] ([facility]) Pfizer-Biontech Covid-19 Vaccine Pfizer-Biontech Covid-19 Va ccine 08/15/2020 12:00:00 AM EDT active M [facility] ([facility] Acetaminophen 325 MG / Hydrocodone Bitartrate 7.5 MG O ral Tablet Hydrocodone-Acetaminophen 07/11/2020 12:00:00 AM EST ORAL completed [facility] Hydrocodone Bitartrate 7.5 MG / Ibuprofen 200 MG Oral Tablet Hydrocodone-Ibuprofen 07/11/2020 12:00:00 AM EST ORAL c ompleted [facility] ([facility] Acetaminophen 325 MG / butalbital 50 MG / Caffeine 40 MG Oral Capsule Butalbital/Acetaminophen/Caffeine 07/10/2020 12:00:00 AM EST ORAL completed [facility] ([facility] Amlodipine 2.5 MG Oral Tablet Amlodipine Besylate 02/01/2020 12:00: 00 AM EDT ORAL active [facility] ([facility] Insurance Providers Payer name Policy type / Coverage type Policy ID Covered republican ID Covered republican's relationship to dobson Policy Dobson Plan Information MEDICARE [id number] SP [id number] A MEDICARE A [id number] Self [id number] A Aarp Medigap Part B [id number] Self Aarp Medigap Part B [id number] Self [id number] Aarp Medigap Part B [id number] Self [id number] Aarp Medigap Part B [id number] Self [id number] Aarp Medigap Part B [id number] Self [id number] Aarp Medigap Part B [id number] Self [id number] AARP U [id number] Self [id number] AARP HEALTH CARE OPTIONS [id number] SP [id number] [facility] B [id number] S [id number] [id number] MEDICAID [id number] SP [id number] Medicaid Medigap Part B [id number] Self [id number] AARP O [id number] S [id number] Medicare Medicare Primary [id number] Self [id number] AARP O [id number] S [id number] Medicare Medicare Primary [id number] Self [id number] Aarp Health Care Options Medigap Part B [id number] Self [id number] Medicare [place] Primary [id number] Self [id number] MEDICARE OUTPATIENT M [id number] S [id number] Medicare Medicare Primary [id number] Self [id number] AARP O [id number] S [id number] MEDICARE C [id number] S [id number] A [place] O [id number] S [id number] Medicare Medicare Primary [id number] Self [id number] Medicare Medicare Primary [id number] Self [id number] [facility] Health Care Options [facility] Part B [id number] Self [id number] Medicare [place] Medicare Primary [id number] Self [id number] [facility] HEALTH CARE OPTIONS -CLINIC [id number] MEDICARE BLUE PPO [id number] SP [id number] Medicare Medicare Primary [id number] Self MEDICARE -O/P [id number] 18 [id number] WORKER'S COMP [id number] Emp [id number] AETNA MEDICARE [id number] SP [id number] EXCELLUS BCBS B [id number] S [id number] AETNA MEDICARE O [id number] AETNA MEDICARE -O/P [id number] MEDICARE PART A -O/P [id number] 18 [id number] MEDICARE PART A -CLINIC [id number] 18 [id number] [facility] HEALTH CARE OPTIONS -O/P [id number] 18 [id number] AETNA MEDICARE [id number] SP [id number] Problems, Conditions, and Diagnoses Code Display Name Description Problem Type Effective Dates Data Source(s) K219 Gastro-esophageal reflux disease without esophagitis Gastro-esophageal reflux disease without esophagitis Diagnosis 05/09/2020 02:35:00 PM ES T [facility] E785 Hyperlipidemia, unspecified Hyperlipidemia, unspecifie d Diagnosis 05/09/2020 02:35:00 PM [facility] I10 Essential (primary) hypertension Essential (primary) h ypertension Diagnosis 05/09/2020 02:35:00 PM [facility] Surgeries/Procedures Procedure Description Date Indications Data Source(s) OFFICE OUTPATIENT VISIT 25 MINUTES 03/04/2021 12:00:00 AM EDT [facility] ([facility] OFFICE OUTPATIENT NEW 30 MINUTES 01/07/2021 12:00:00 A M EDT [facility] ([facility]) OFFICE OUTPATIENT VISIT 25 MINUTES 11/28/2020 12:00:00 AM EDT [facility] ([facility] OFFICE OUTPATIENT VISIT 25 MINUTES 08/15/2020 12:00:00 AM EDT [facility] ([facility] OFFICE OUTPATIENT VISIT 15 MINUTES 07/19/2020 12:00:00 AM EST [facility] ([facility] OFFICE OUTPATIENT VISIT 15 MINUTES 07/10/2020 12:00:00 AM EST [facility] ([facility] Results ID Date Data Source [id number] 03/04/2021 09:07:00 AM EDT [facility] Name Value Range Interpretation Code Description Data Ehdy rce(s) Supporting Document(s) Creatine kinase [Enzymatic activity/volume] in Serum o r Plasma Laboratory test result [facility] ID Date Data Source [id number] 11/28/2020 09:20:00 AM EDT [facility] Name Value Range Interpretation Code Description Data Hedy rce(s) Supporting Document(s) Appearance of Urine Laboratory test result [facility] ([facility] Color Urine Laboratory test result M [facility]ENT ([facility] Specific [place] 1.030 1.00-1.03 [facility] ([facility] PH Urine 5.5 5.0-8.0 [facility] ([facility] Ketones Laboratory test result [facility] ([facility] Bilirubin.total [Presence] in Urine by Test strip Laboratory test res ult [facility] ([facility] Glucose Urine Laboratory test result [facility] ([facility] Protein Urine Laboratory test result Above high normal [facility] ([facility] Blood Urine Laboratory test result M [facility] ([facility] Urobilinogen 0.2 EU/dl 0.2-1.0 [facility] ([facility] Nitrite Laboratory test result [facility] ([facility] Leukocytes Laboratory test result ME DENT ([facility] ID Date Data Source [id number] 11/28/2020 09:20:00 AM EDT [facility] ([facility] Name Value Range Interpretation Code Description Data Hedy rce(s) Supporting Document(s) Hemoglobin A1c/Hemoglobin.total in Blood 5.9 % 4.50-6.20 [facility] ([facility] ID Date Data Source [id number] 11/28/2020 09:20:00 AM EDT [facility] ([facility] Name Value Range Interpretation Code Description Data Hedy rce(s) Supporting Document(s) Creatine kinase [Enzymatic activity/volume] in Serum or Plasma 95 U /L 39-308 [facility] ([facility] NORMAL RANGES Age WBC RBC HGB HCT [...] HCT IS 5% LESS SOURCE FOR DATA: Interactive TKO 1800 OPERATION MANUAL( AUTOMATED BLOOD COUNTS AND [...] ADOLESCENTS REPRESENTS INDIVIDUALA AGED 2-19 YEARS EXCLUSIVE. ID Date Data Source [id number] 11/28/2020 09:20:00 AM EDT [facility] ([facility] Name Value Range Interpretation Code Description Data Hedy rce(s) Supporting Document(s) Chol 156 mg/dL 0-200 [facility] ([facility] NORMAL RANGES Age WBC RBC HGB HCT [...] HCT IS 5% LESS SOURCE FOR DATA: ELO DYN 1800 OPERATION MANUAL( AUTOMATED BLOOD COUNTS [...] ADOLESCENTS REPRESENTS INDIVIDUALA AGED 2-19 YEARS EXCLUSIVE. Cholesterol in HDL [Mass/volume] in Serum or Plasma 39 mg/dL 35-55 [facility] ([facility] NORMAL RANGES Age WBC RBC HGB HCT [...] HCT IS 5% LESS SOURCE FOR DATA: Interactive TKO 1800 OPERATION MANUAL( AUTOMATED BLOOD COUNTS AND [...] DESIRABLE: <130 MG/DL <110 MG/DL BORDERLINE-HIGH RISK: 130- 159 MG/DL 110-129 MG/DL HIGH RISK: >160 MG/DL >130 MG/DL *CHILDREN AND ADOLESCENTS REPRESENTS INDIVIDUALA AGED 2-19 YEARS EXCLUSIVE. LDL_C 58 Calc 75-129 Below low normal [facility] ( [facility] NORMAL RANGES Age WBC RBC HGB HCT [...] HCT IS 5% LESS SOURCE FOR DATA: Interactive TKO 1800 OPERATION MANUAL( AUTOMATED BLOOD COUNTS AND [...] DESIRABLE: <130 MG/DL <110 MG/DL BORDERLINE-HIGH RISK: 130- 159 MG/DL 110-129 MG/DL HIGH RISK: >160 MG/DL >130 MG/DL *CHILDREN AND ADOLESCENTS REPRESENTS INDIVIDUALA AGED 2-19 YEARS EXCLUSIVE. Trig 298 mg/dL 35-200 Above high normal [facility] ([facility] NORMAL RANGES Age WBC RBC HGB HCT [...] HCT IS 5% LESS SOURCE FOR DATA: STAR FESTIVAL DYN 1800 OPERATION MANUAL( AUTOMATED BLOOD COUNTS [...] DESIRABLE: <130 MG/DL <110 MG/DL BORDERLINE-HIGH RISK: 130- 159 MG/DL 110-129 MG/DL HIGH RISK: >160 MG/DL >130 MG/DL *CHILDREN AND ADOLESCENTS REPRESENTS INDIVIDUALA AGED 2-19 YEARS EXCLUSIVE. Cho/HDL Ratio 4.0 CALC [facility] ([facility] NORMAL RANGES Age WBC RBC HGB HCT [...] HCT IS 5% LESS SOURCE FOR DATA: Interactive TKO 1800 OPERATION MANUAL( AUTOMATED BLOOD COUNTS AND [...] DESIRABLE: <130 MG/DL <110 MG/DL BORDERLINE-HIGH RISK: 130- 159 MG/DL 110-129 MG/DL HIGH RISK: >160 MG/DL >130 MG/DL *CHILDREN AND ADOLESCENTS REPRESENTS INDIVIDUALA AGED 2-19 YEARS EXCLUSIVE. ID Date Data Source [id number] 11/28/2020 09:20:00 AM YENNY MCKEON ([facility] Name Value Range Interpretation Code Description Data Hedy rce(s) Supporting Document(s) Glu 126 mg/dL 70-110 Above high normal [facility] ([facility] NORMAL RANGES Age WBC RBC HGB HCT [...] HCT IS 5% LESS SOURCE FOR DATA: Interactive TKO 1800 OPERATION MANUAL( AUTOMATED BLOOD COUNTS AND [...] DESIRABLE: <130 MG/DL <110 MG/DL BORDERLINE-HIGH RISK: 130- 159 MG/DL 110-129 MG/DL HIGH RISK: >160 MG/DL >130 MG/DL *CHILDREN AND ADOLESCENTS REPRESENTS INDIVIDUALA AGED 2-19 YEARS EXCLUSIVE. Creat 0.7 mg/dL 0.7-1.2 [facility] NORMAL RANGES Age WBC RBC HGB HCT [...] HCT IS 5% LESS SOURCE FOR DATA: Interactive TKO 1800 OPERATION MANUAL( AUTOMATED BLOOD COUNTS AND [...] DESIRABLE: <130 MG/DL <110 MG/DL BORDERLINE-HIGH RISK: 130- 159 MG/DL 110-129 MG/DL HIGH RISK: >160 MG/DL >130 MG/DL *CHILDREN AND ADOLESCENTS REPRESENTS INDIVIDUALA AGED 2-19 YEARS EXCLUSIVE. BUN/Creatinine Ratio 31.6 CALC [facility] ([facility] NORMAL RANGES Age WBC RBC HGB HCT [...] HCT IS 5% LESS SOURCE FOR DATA: Interactive TKO 1800 OPERATION MANUAL( AUTOMATED BLOOD COUNTS AND [...] DESIRABLE: <130 MG/DL <110 MG/DL BORDERLINE-HIGH RISK: 130- 159 MG/DL 110-129 MG/DL HIGH RISK: >160 MG/DL >130 MG/DL *CHILDREN AND ADOLESCENTS REPRESENTS INDIVIDUALA AGED 2-19 YEARS EXCLUSIVE. BUN 22 mg/dL 8-23 [facility] NORMAL RANGES Age WBC RBC HGB HCT [...] HCT IS 5% LESS SOURCE FOR DATA: Interactive TKO 1800 OPERATION MANUAL( AUTOMATED BLOOD COUNTS AND [...] DESIRABLE: <130 MG/DL <110 MG/DL BORDERLINE-HIGH RISK: 130- 159 MG/DL 110-129 MG/DL HIGH RISK: >160 MG/DL >130 MG/DL *CHILDREN AND ADOLESCENTS REPRESENTS INDIVIDUALA AGED 2-19 YEARS EXCLUSIVE. Na 137 mmol/L 136-145 [facility] ([facility] NORMAL RANGES Age WBC RBC HGB HCT [...] HCT IS 5% LESS SOURCE FOR DATA: Interactive TKO 1800 OPERATION MANUAL( AUTOMATED BLOOD COUNTS AND [...] DESIRABLE: <130 MG/DL <110 MG/DL BORDERLINE-HIGH RISK: 130- 159 MG/DL 110-129 MG/DL HIGH RISK: >160 MG/DL >130 MG/DL *CHILDREN AND ADOLESCENTS REPRESENTS INDIVIDUALA AGED 2-19 YEARS EXCLUSIVE. K 4.1 mmol/L 3.5-5.1 [facility] ([facility] NORMAL RANGES Age WBC RBC HGB HCT [...] HCT IS 5% LESS SOURCE FOR DATA: Interactive TKO 1800 OPERATION MANUAL( AUTOMATED BLOOD COUNTS AND [...] DESIRABLE: <130 MG/DL <110 MG/DL BORDERLINE-HIGH RISK: 130- 159 MG/DL 110-129 MG/DL HIGH RISK: >160 MG/DL >130 MG/DL *CHILDREN AND ADOLESCENTS REPRESENTS INDIVIDUALA AGED 2-19 YEARS EXCLUSIVE. Co2 23.2 mmol/L 22.0-29.0 [facility] ([facility] NORMAL RANGES Age WBC RBC HGB HCT [...] HCT IS 5% LESS SOURCE FOR DATA: Interactive TKO 1800 OPERATION MANUAL( AUTOMATED BLOOD COUNTS AND [...] DESIRABLE: <130 MG/DL <110 MG/DL BORDERLINE-HIGH RISK: 130- 159 MG/DL 110-129 MG/DL HIGH RISK: >160 MG/DL >130 MG/DL *CHILDREN AND ADOLESCENTS REPRESENTS INDIVIDUALA AGED 2-19 YEARS EXCLUSIVE. CL 102.9 mmol/L 98.0-107.0 [facility] ([facility] NORMAL RANGES Age WBC RBC HGB HCT [...] HCT IS 5% LESS SOURCE FOR DATA: Interactive TKO 1800 OPERATION MANUAL( AUTOMATED BLOOD COUNTS AND [...] DESIRABLE: <130 MG/DL <110 MG/DL BORDERLINE-HIGH RISK: 130- 159 MG/DL 110-129 MG/DL HIGH RISK: >160 MG/DL >130 MG/DL *CHILDREN AND ADOLESCENTS REPRESENTS INDIVIDUALA AGED 2-19 YEARS EXCLUSIVE. Alb 4.0 g/dL 3.5-5.2 [facility] ([facility] NORMAL RANGES Age WBC RBC HGB HCT [...] HCT IS 5% LESS SOURCE FOR DATA: Interactive TKO 1800 OPERATION MANUAL( AUTOMATED BLOOD COUNTS AND [...] DESIRABLE: <130 MG/DL <110 MG/DL BORDERLINE-HIGH RISK: 130- 159 MG/DL 110-129 MG/DL HIGH RISK: >160 MG/DL >130 MG/DL *CHILDREN AND ADOLESCENTS REPRESENTS INDIVIDUALA AGED 2-19 YEARS EXCLUSIVE. TP 6.8 g/dL 6.6-8.7 [facility] ([facility] NORMAL RANGES Age WBC RBC HGB HCT [...] HCT IS 5% LESS SOURCE FOR DATA: ELO DYN 1800 OPERATION MANUAL( AUTOMATED BLOOD COUNTS [...] DESIRABLE: <130 MG/DL <110 MG/DL BORDERLINE-HIGH RISK: 130- 159 MG/DL 110-129 MG/DL HIGH RISK: >160 MG/DL >130 MG/DL *CHILDREN AND ADOLESCENTS REPRESENTS INDIVIDUALA AGED 2-19 YEARS EXCLUSIVE. CA 9.1 mg/dL 8.6-10.2 [facility] ([facility] NORMAL RANGES Age WBC RBC HGB HCT [...] HCT IS 5% LESS SOURCE FOR DATA: Interactive TKO 1800 OPERATION MANUAL( AUTOMATED BLOOD COUNTS AND [...] DESIRABLE: <130 MG/DL <110 MG/DL BORDERLINE-HIGH RISK: 130- 159 MG/DL 110-129 MG/DL HIGH RISK: >160 MG/DL >130 MG/DL *CHILDREN AND ADOLESCENTS REPRESENTS INDIVIDUALA AGED 2-19 YEARS EXCLUSIVE. A/G Ratio 1.4 CALC [facility] ([facility] NORMAL RANGES Age WBC RBC HGB HCT [...] HCT IS 5% LESS SOURCE FOR DATA: Interactive TKO 1800 OPERATION MANUAL( AUTOMATED BLOOD COUNTS AND [...] DESIRABLE: <130 MG/DL <110 MG/DL BORDERLINE-HIGH RISK: 130- 159 MG/DL 110-129 MG/DL HIGH RISK: >160 MG/DL >130 MG/DL *CHILDREN AND ADOLESCENTS REPRESENTS INDIVIDUALA AGED 2-19 YEARS EXCLUSIVE. Globulin 2.8 CALC [facility] ([facility] NORMAL RANGES Age WBC RBC HGB HCT [...] HCT IS 5% LESS SOURCE FOR DATA: STAR FESTIVAL DYN 1800 OPERATION MANUAL( AUTOMATED BLOOD COUNTS [...] DESIRABLE: <130 MG/DL <110 MG/DL BORDERLINE-HIGH RISK: 130- 159 MG/DL 110-129 MG/DL HIGH RISK: >160 MG/DL >130 MG/DL *CHILDREN AND ADOLESCENTS REPRESENTS INDIVIDUALA AGED 2-19 YEARS EXCLUSIVE. Alt (SGPT) 38 U/L 0-41 [facility] ([facility] NORMAL RANGES Age WBC RBC HGB HCT [...] HCT IS 5% LESS SOURCE FOR DATA: Interactive TKO 1800 OPERATION MANUAL( AUTOMATED BLOOD COUNTS AND [...] DESIRABLE: <130 MG/DL <110 MG/DL BORDERLINE-HIGH RISK: 130- 159 MG/DL 110-129 MG/DL HIGH RISK: >160 MG/DL >130 MG/DL *CHILDREN AND ADOLESCENTS REPRESENTS INDIVIDUALA AGED 2-19 YEARS EXCLUSIVE. Alp 113.2 U/L 40-129 [facility] ([facility] NORMAL RANGES Age WBC RBC HGB HCT [...] HCT IS 5% LESS SOURCE FOR DATA: Interactive TKO 1800 OPERATION MANUAL( AUTOMATED BLOOD COUNTS AND [...] DESIRABLE: <130 MG/DL <110 MG/DL BORDERLINE-HIGH RISK: 130- 159 MG/DL 110-129 MG/DL HIGH RISK: >160 MG/DL >130 MG/DL *CHILDREN AND ADOLESCENTS REPRESENTS INDIVIDUALA AGED 2-19 YEARS EXCLUSIVE. Ast (Sgot) 31 U/L 0-40 [employer] [place] NORMAL RANGES Age WBC RBC HGB HCT [...] HCT IS 5% LESS SOURCE FOR DATA: Interactive TKO 1800 OPERATION MANUAL( AUTOMATED BLOOD COUNTS AND [...] DESIRABLE: <130 MG/DL <110 MG/DL BORDERLINE-HIGH RISK: 130- 159 MG/DL 110-129 MG/DL HIGH RISK: >160 MG/DL >130 MG/DL *CHILDREN AND ADOLESCENTS REPRESENTS INDIVIDUALA AGED 2-19 YEARS EXCLUSIVE. Osmolality-Calculated 279.6 CALC [facility] ([facility] NORMAL RANGES Age WBC RBC HGB HCT [...] HCT IS 5% LESS SOURCE FOR DATA: Interactive TKO 1800 OPERATION MANUAL( AUTOMATED BLOOD COUNTS AND [...] DESIRABLE: <130 MG/DL <110 MG/DL BORDERLINE-HIGH RISK: 130- 159 MG/DL 110-129 MG/DL HIGH RISK: >160 MG/DL >130 MG/DL *CHILDREN AND ADOLESCENTS REPRESENTS INDIVIDUALA AGED 2-19 YEARS EXCLUSIVE. Anion Gap 15 mmol/L [facility] ([facility] NORMAL RANGES Age WBC RBC HGB HCT [...] HCT IS 5% LESS SOURCE FOR DATA: Interactive TKO 1800 OPERATION MANUAL( AUTOMATED BLOOD COUNTS AND [...] DESIRABLE: <130 MG/DL <110 MG/DL BORDERLINE-HIGH RISK: 130- 159 MG/DL 110-129 MG/DL HIGH RISK: >160 MG/DL >130 MG/DL *CHILDREN AND ADOLESCENTS REPRESENTS INDIVIDUALA AGED 2-19 YEARS EXCLUSIVE. Tbili 0.39 mg/dL 0.0-1.2 [facility] NORMAL RANGES Age WBC RBC HGB HCT [...] HCT IS 5% LESS SOURCE FOR DATA: Interactive TKO 1800 OPERATION MANUAL( AUTOMATED BLOOD COUNTS AND [...] DESIRABLE: <130 MG/DL <110 MG/DL BORDERLINE-HIGH RISK: 130- 159 MG/DL 110-129 MG/DL HIGH RISK: >160 MG/DL >130 MG/DL *CHILDREN AND ADOLESCENTS REPRESENTS INDIVIDUALA AGED 2-19 YEARS EXCLUSIVE. eGFR 113 # [facility] ( [facility] NORMAL RANGES Age WBC RBC HGB HCT [...] HCT IS 5% LESS SOURCE FOR DATA: Interactive TKO 1800 OPERATION MANUAL( AUTOMATED BLOOD COUNTS AND [...] DESIRABLE: <130 MG/DL <110 MG/DL BORDERLINE-HIGH RISK: 130- 159 MG/DL 110-129 MG/DL HIGH RISK: >160 MG/DL >130 MG/DL *CHILDREN AND ADOLESCENTS REPRESENTS INDIVIDUALA AGED 2-19 YEARS EXCLUSIVE. eGFR Non-Afr. Swazi 98 # [facility] ([facility] NORMAL RANGES Age WBC RBC HGB HCT [...] HCT IS 5% LESS SOURCE FOR DATA: Interactive TKO 1800 OPERATION MANUAL( AUTOMATED BLOOD COUNTS AND [...] DESIRABLE: <130 MG/DL <110 MG/DL BORDERLINE-HIGH RISK: 130- 159 MG/DL 110-129 MG/DL HIGH RISK: >160 MG/DL >130 MG/DL *CHILDREN AND ADOLESCENTS REPRESENTS INDIVIDUALA AGED 2-19 YEARS EXCLUSIVE. ID Date Data Source [id number] 11/28/2020 09:20:00 AM EDT [facility] ([facility] Name Value Range Interpretation Code Description Data Hedy rce(s) Supporting Document(s) WBC 6.1 10E3/uL 4.1-10.9 [facility] ([facility] NORMAL RANGES Age WBC RBC HGB HCT [...] HCT IS 5% LESS SOURCE FOR DATA: Interactive TKO 1800 OPERATION MANUAL( AUTOMATED BLOOD COUNTS AND [...] DESIRABLE: <130 MG/DL <110 MG/DL BORDERLINE-HIGH RISK: 130- 159 MG/DL 110-129 MG/DL HIGH RISK: >160 MG/DL >130 MG/DL *CHILDREN AND ADOLESCENTS REPRESENTS INDIVIDUALA AGED 2-19 YEARS EXCLUSIVE. RBC 4.53 10E6/uL 4.20-6.30 [facility] ([facility] NORMAL RANGES Age WBC RBC HGB HCT [...] HCT IS 5% LESS SOURCE FOR DATA: Interactive TKO 1800 OPERATION MANUAL( AUTOMATED BLOOD COUNTS AND [...] DESIRABLE: <130 MG/DL <110 MG/DL BORDERLINE-HIGH RISK: 130- 159 MG/DL 110-129 MG/DL HIGH RISK: >160 MG/DL >130 MG/DL *CHILDREN AND ADOLESCENTS REPRESENTS INDIVIDUALA AGED 2-19 YEARS EXCLUSIVE. HGB 13.6 g/dL 12.0-18.0 [facility] NORMAL RANGES Age WBC RBC HGB HCT [...] HCT IS 5% LESS SOURCE FOR DATA: Interactive TKO 1800 OPERATION MANUAL( AUTOMATED BLOOD COUNTS AND [...] DESIRABLE: <130 MG/DL <110 MG/DL BORDERLINE-HIGH RISK: 130- 159 MG/DL 110-129 MG/DL HIGH RISK: >160 MG/DL >130 MG/DL *CHILDREN AND ADOLESCENTS REPRESENTS INDIVIDUALA AGED 2-19 YEARS EXCLUSIVE. HCT 41.0 % 37.0-51.0 [facility] ([facility] NORMAL RANGES Age WBC RBC HGB HCT [...] HCT IS 5% LESS SOURCE FOR DATA: Interactive TKO 1800 OPERATION MANUAL( AUTOMATED BLOOD COUNTS AND [...] DESIRABLE: <130 MG/DL <110 MG/DL BORDERLINE-HIGH RISK: 130- 159 MG/DL 110-129 MG/DL HIGH RISK: >160 MG/DL >130 MG/DL *CHILDREN AND ADOLESCENTS REPRESENTS INDIVIDUALA AGED 2-19 YEARS EXCLUSIVE. MCV 90.5 fL 80.0-97.0 [facility] ([facility] NORMAL RANGES Age WBC RBC HGB HCT [...] HCT IS 5% LESS SOURCE FOR DATA: Interactive TKO 1800 OPERATION MANUAL( AUTOMATED BLOOD COUNTS AND [...] DESIRABLE: <130 MG/DL <110 MG/DL BORDERLINE-HIGH RISK: 130- 159 MG/DL 110-129 MG/DL HIGH RISK: >160 MG/DL >130 MG/DL *CHILDREN AND ADOLESCENTS REPRESENTS INDIVIDUALA AGED 2-19 YEARS EXCLUSIVE. MCH 30.0 pg 26.0-32.0 [facility] ([facility] NORMAL RANGES Age WBC RBC HGB HCT [...] HCT IS 5% LESS SOURCE FOR DATA: STAR FESTIVAL DYN 1800 OPERATION MANUAL( AUTOMATED BLOOD COUNTS [...] DESIRABLE: <130 MG/DL <110 MG/DL BORDERLINE-HIGH RISK: 130- 159 MG/DL 110-129 MG/DL HIGH RISK: >160 MG/DL >130 MG/DL *CHILDREN AND ADOLESCENTS REPRESENTS INDIVIDUALA AGED 2-19 YEARS EXCLUSIVE. MCHC 33.2 g/dL 31.0-36.0 [facility] NORMAL RANGES Age WBC RBC HGB HCT [...] HCT IS 5% LESS SOURCE FOR DATA: Interactive TKO 1800 OPERATION MANUAL( AUTOMATED BLOOD COUNTS AND [...] DESIRABLE: <130 MG/DL <110 MG/DL BORDERLINE-HIGH RISK: 130- 159 MG/DL 110-129 MG/DL HIGH RISK: >160 MG/DL >130 MG/DL *CHILDREN AND ADOLESCENTS REPRESENTS INDIVIDUALA AGED 2-19 YEARS EXCLUSIVE. RDW-CV 12.8 % 11.5-14.5 [facility] ([facility] NORMAL RANGES Age WBC RBC HGB HCT [...] HCT IS 5% LESS SOURCE FOR DATA: Interactive TKO 1800 OPERATION MANUAL( AUTOMATED BLOOD COUNTS AND [...] DESIRABLE: <130 MG/DL <110 MG/DL BORDERLINE-HIGH RISK: 130- 159 MG/DL 110-129 MG/DL HIGH RISK: >160 MG/DL >130 MG/DL *CHILDREN AND ADOLESCENTS REPRESENTS INDIVIDUALA AGED 2-19 YEARS EXCLUSIVE. PLT 190 10E3/uL 140-440 [employer] [facility] ([facility] NORMAL RANGES Age WBC RBC HGB HCT [...] HCT IS 5% LESS SOURCE FOR DATA: Interactive TKO 1800 OPERATION MANUAL( AUTOMATED BLOOD COUNTS AND [...] DESIRABLE: <130 MG/DL <110 MG/DL BORDERLINE-HIGH RISK: 130- 159 MG/DL 110-129 MG/DL HIGH RISK: >160 MG/DL >130 MG/DL *CHILDREN AND ADOLESCENTS REPRESENTS INDIVIDUALA AGED 2-19 YEARS EXCLUSIVE. MXD% 8.0 % 0.1-24.0 [facility] NORMAL RANGES Age WBC RBC HGB HCT [...] HCT IS 5% LESS SOURCE FOR DATA: Interactive TKO 1800 OPERATION MANUAL( AUTOMATED BLOOD COUNTS AND [...] DESIRABLE: <130 MG/DL <110 MG/DL BORDERLINE-HIGH RISK: 130- 159 MG/DL 110-129 MG/DL HIGH RISK: >160 MG/DL >130 MG/DL *CHILDREN AND ADOLESCENTS REPRESENTS INDIVIDUALA AGED 2-19 YEARS EXCLUSIVE. Neut% 65.1 % 37.0-92.0 [facility] ([facility] NORMAL RANGES Age WBC RBC HGB HCT [...] HCT IS 5% LESS SOURCE FOR DATA: Interactive TKO 1800 OPERATION MANUAL( AUTOMATED BLOOD COUNTS AND [...] DESIRABLE: <130 MG/DL <110 MG/DL BORDERLINE-HIGH RISK: 130- 159 MG/DL 110-129 MG/DL HIGH RISK: >160 MG/DL >130 MG/DL *CHILDREN AND ADOLESCENTS REPRESENTS INDIVIDUALA AGED 2-19 YEARS EXCLUSIVE. Lym% 26.9 % 10.0-58.5 [facility] ([facility] NORMAL RANGES Age WBC RBC HGB HCT [...] HCT IS 5% LESS SOURCE FOR DATA: Interactive TKO 1800 OPERATION MANUAL( AUTOMATED BLOOD COUNTS AND [...] DESIRABLE: <130 MG/DL <110 MG/DL BORDERLINE-HIGH RISK: 130- 159 MG/DL 110-129 MG/DL HIGH RISK: >160 MG/DL >130 MG/DL *CHILDREN AND ADOLESCENTS REPRESENTS INDIVIDUALA AGED 2-19 YEARS EXCLUSIVE. Neut# 4.0 % 2.0-7.8 [facility] NORMAL RANGES Age WBC RBC HGB HCT [...] HCT IS 5% LESS SOURCE FOR DATA: Interactive TKO 1800 OPERATION MANUAL( AUTOMATED BLOOD COUNTS AND [...] DESIRABLE: <130 MG/DL <110 MG/DL BORDERLINE-HIGH RISK: 130- 159 MG/DL 110-129 MG/DL HIGH RISK: >160 MG/DL >130 MG/DL *CHILDREN AND ADOLESCENTS REPRESENTS INDIVIDUALA AGED 2-19 YEARS EXCLUSIVE. Lym# 1.6 10E3/uL 0.6-4.1 [facility] ([facility] NORMAL RANGES Age WBC RBC HGB HCT [...] HCT IS 5% LESS SOURCE FOR DATA: Interactive TKO 1800 OPERATION MANUAL( AUTOMATED BLOOD COUNTS AND [...] DESIRABLE: <130 MG/DL <110 MG/DL BORDERLINE-HIGH RISK: 130- 159 MG/DL 110-129 MG/DL HIGH RISK: >160 MG/DL >130 MG/DL *CHILDREN AND ADOLESCENTS REPRESENTS INDIVIDUALA AGED 2-19 YEARS EXCLUSIVE. MPV 10.2 fL 9.0-13.0 [facility] ([facility] NORMAL RANGES Age WBC RBC HGB HCT [...] HCT IS 5% LESS SOURCE FOR DATA: Interactive TKO 1800 OPERATION MANUAL( AUTOMATED BLOOD COUNTS AND [...] DESIRABLE: <130 MG/DL <110 MG/DL BORDERLINE-HIGH RISK: 130- 159 MG/DL 110-129 MG/DL HIGH RISK: >160 MG/DL >130 MG/DL *CHILDREN AND ADOLESCENTS REPRESENTS INDIVIDUALA AGED 2-19 YEARS EXCLUSIVE. MXD# 0.5 10E3/uL 0.0-1.8 [facility] ([facility] NORMAL RANGES Age WBC RBC HGB HCT [...] HCT IS 5% LESS SOURCE FOR DATA: Interactive TKO 1800 OPERATION MANUAL( AUTOMATED BLOOD COUNTS AND [...] DESIRABLE: <130 MG/DL <110 MG/DL BORDERLINE-HIGH RISK: 130- 159 MG/DL 110-129 MG/DL HIGH RISK: >160 MG/DL >130 MG/DL *CHILDREN AND ADOLESCENTS REPRESENTS INDIVIDUALA AGED 2-19 YEARS EXCLUSIVE. ID Date Data Source [id number] 08/15/2020 10:39:00 AM EDT [facility] ([facility] Name Value Range Interpretation Code Description Data Hedy rce(s) Supporting Document(s) Alb 150 mg/L [facility] ([facility] Creatinine, Urine 200 mg/dL 10-300 [facility] ([facility] A/C Ratio Laboratory test result Abnormal (applies to non -numeric results) [facility] ([facility] ID Date Data Source [id number] 08/15/2020 10:07:00 AM EDT [facility] ([facility] Name Value Range Interpretation Code Description Data Hedy rce(s) Supporting Document(s) Creatine kinase [Enzymatic activity/volume] in Serum or Plasma 83 U /L 39-308 [facility] ([facility] NORMAL RANGES Age WBC RBC HGB HCT [...] HCT IS 5% LESS SOURCE FOR DATA: STAR FESTIVAL DYN 1800 OPERATION MANUAL( AUTOMATED BLOOD COUNTS [...] ADOLESCENTS REPRESENTS INDIVIDUALA AGED 2-19 YEARS EXCLUSIVE. Hemoglobin A1c/Hemoglobin.total in Blood 5.9 % 4.40-6.10 [facility] ([facility] NORMAL RANGES Age WBC RBC HGB HCT [...] HCT IS 5% LESS SOURCE FOR DATA: Interactive TKO 1800 OPERATION MANUAL( AUTOMATED BLOOD COUNTS AND [...] ADOLESCENTS REPRESENTS INDIVIDUALA AGED 2-19 YEARS EXCLUSIVE. ID Date Data Source [id number] 08/15/2020 10:07:00 AM EDT [facility] ([facility] Name Value Range Interpretation Code Description Data Hedy rce(s) Supporting Document(s) Trig 356 mg/dL 35-200 Above high normal [facility] ([facility] NORMAL RANGES Age WBC RBC HGB HCT [...] HCT IS 5% LESS SOURCE FOR DATA: STAR FESTIVAL DYN 1800 OPERATION MANUAL( AUTOMATED BLOOD COUNTS [...] ADOLESCENTS REPRESENTS INDIVIDUALA AGED 2-19 YEARS EXCLUSIVE. Chol 167 mg/dL 0-200 [facility] ([facility] NORMAL RANGES Age WBC RBC HGB HCT [...] HCT IS 5% LESS SOURCE FOR DATA: Interactive TKO 1800 OPERATION MANUAL( AUTOMATED BLOOD COUNTS AND [...] ADOLESCENTS REPRESENTS INDIVIDUALA AGED 2-19 YEARS EXCLUSIVE. LDL_C 56 Calc 75-129 Below low normal [facility] ( [facility] NORMAL RANGES Age WBC RBC HGB HCT [...] HCT IS 5% LESS SOURCE FOR DATA: Interactive TKO 1800 OPERATION MANUAL( AUTOMATED BLOOD COUNTS AND [...] ADOLESCENTS REPRESENTS INDIVIDUALA AGED 2-19 YEARS EXCLUSIVE. Cholesterol in HDL [Mass/volume] in Serum or Plasma 40 mg/dL 35-55 [facility] ([facility] NORMAL RANGES Age WBC RBC HGB HCT [...] HCT IS 5% LESS SOURCE FOR DATA: STAR FESTIVAL DYN 1800 OPERATION MANUAL( AUTOMATED BLOOD COUNTS [...] DESIRABLE: <130 MG/DL <110 MG/DL BORDERLINE-HIGH RISK: 130- 159 MG/DL 110-129 MG/DL HIGH RISK: >160 MG/DL >130 MG/DL *CHILDREN AND ADOLESCENTS REPRESENTS INDIVIDUALA AGED 2-19 YEARS EXCLUSIVE. Cho/HDL Ratio 4.2 Calc [facility] ([facility] NORMAL RANGES Age WBC RBC HGB HCT [...] HCT IS 5% LESS SOURCE FOR DATA: Interactive TKO 1800 OPERATION MANUAL( AUTOMATED BLOOD COUNTS AND [...] DESIRABLE: <130 MG/DL <110 MG/DL BORDERLINE-HIGH RISK: 130- 159 MG/DL 110-129 MG/DL HIGH RISK: >160 MG/DL >130 MG/DL *CHILDREN AND ADOLESCENTS REPRESENTS INDIVIDUALA AGED 2-19 YEARS EXCLUSIVE. ID Date Data Source [id number] 08/15/2020 10:07:00 AM EDT [facility] ([facility] Name Value Range Interpretation Code Description Data Hedy rce(s) Supporting Document(s) Glu 130 mg/dL 70-110 Above high normal [facility] ([facility] NORMAL RANGES Age WBC RBC HGB HCT [...] HCT IS 5% LESS SOURCE FOR DATA: Interactive TKO 1800 OPERATION MANUAL( AUTOMATED BLOOD COUNTS AND [...] DESIRABLE: <130 MG/DL <110 MG/DL BORDERLINE-HIGH RISK: 130- 159 MG/DL 110-129 MG/DL HIGH RISK: >160 MG/DL >130 MG/DL *CHILDREN AND ADOLESCENTS REPRESENTS INDIVIDUALA AGED 2-19 YEARS EXCLUSIVE. BUN 19 mg/dL 8-23 [facility] ([facility] NORMAL RANGES Age WBC RBC HGB HCT [...] HCT IS 5% LESS SOURCE FOR DATA: Interactive TKO 1800 OPERATION MANUAL( AUTOMATED BLOOD COUNTS AND [...] DESIRABLE: <130 MG/DL <110 MG/DL BORDERLINE-HIGH RISK: 130- 159 MG/DL 110-129 MG/DL HIGH RISK: >160 MG/DL >130 MG/DL *CHILDREN AND ADOLESCENTS REPRESENTS INDIVIDUALA AGED 2-19 YEARS EXCLUSIVE. Creat 0.7 mg/dL 0.7-1.2 [facility] ([facility] NORMAL RANGES Age WBC RBC HGB HCT [...] HCT IS 5% LESS SOURCE FOR DATA: Interactive TKO 1800 OPERATION MANUAL( AUTOMATED BLOOD COUNTS AND [...] DESIRABLE: <130 MG/DL <110 MG/DL BORDERLINE-HIGH RISK: 130- 159 MG/DL 110-129 MG/DL HIGH RISK: >160 MG/DL >130 MG/DL *CHILDREN AND ADOLESCENTS REPRESENTS INDIVIDUALA AGED 2-19 YEARS EXCLUSIVE. BUN/Creatinine Ratio 27.0 Calc [facility] ([facility] NORMAL RANGES Age WBC RBC HGB HCT [...] HCT IS 5% LESS SOURCE FOR DATA: Interactive TKO 1800 OPERATION MANUAL( AUTOMATED BLOOD COUNTS AND [...] DESIRABLE: <130 MG/DL <110 MG/DL BORDERLINE-HIGH RISK: 130- 159 MG/DL 110-129 MG/DL HIGH RISK: >160 MG/DL >130 MG/DL *CHILDREN AND ADOLESCENTS REPRESENTS INDIVIDUALA AGED 2-19 YEARS EXCLUSIVE. Na 137 mmol/L 136-145 [facility] NORMAL RANGES Age WBC RBC HGB HCT [...] HCT IS 5% LESS SOURCE FOR DATA: Interactive TKO 1800 OPERATION MANUAL( AUTOMATED BLOOD COUNTS AND [...] DESIRABLE: <130 MG/DL <110 MG/DL BORDERLINE-HIGH RISK: 130- 159 MG/DL 110-129 MG/DL HIGH RISK: >160 MG/DL >130 MG/DL *CHILDREN AND ADOLESCENTS REPRESENTS INDIVIDUALA AGED 2-19 YEARS EXCLUSIVE. K 4.1 mmol/L 3.5-5.1 [facility] ([facility] NORMAL RANGES Age WBC RBC HGB HCT [...] HCT IS 5% LESS SOURCE FOR DATA: Interactive TKO 1800 OPERATION MANUAL( AUTOMATED BLOOD COUNTS AND [...] DESIRABLE: <130 MG/DL <110 MG/DL BORDERLINE-HIGH RISK: 130- 159 MG/DL 110-129 MG/DL HIGH RISK: >160 MG/DL >130 MG/DL *CHILDREN AND ADOLESCENTS REPRESENTS INDIVIDUALA AGED 2-19 YEARS EXCLUSIVE. CL 99.8 mmol/L 98.0-107.0 [facility] ([facility] NORMAL RANGES Age WBC RBC HGB HCT [...] HCT IS 5% LESS SOURCE FOR DATA: ELO DYN 1800 OPERATION MANUAL( AUTOMATED BLOOD COUNTS [...] DESIRABLE: <130 MG/DL <110 MG/DL BORDERLINE-HIGH RISK: 130- 159 MG/DL 110-129 MG/DL HIGH RISK: >160 MG/DL >130 MG/DL *CHILDREN AND ADOLESCENTS REPRESENTS INDIVIDUALA AGED 2-19 YEARS EXCLUSIVE. CA 9.4 mg/dL 8.6-10.2 [facility] ([facility] NORMAL RANGES Age WBC RBC HGB HCT [...] HCT IS 5% LESS SOURCE FOR DATA: Interactive TKO 1800 OPERATION MANUAL( AUTOMATED BLOOD COUNTS AND [...] DESIRABLE: <130 MG/DL <110 MG/DL BORDERLINE-HIGH RISK: 130- 159 MG/DL 110-129 MG/DL HIGH RISK: >160 MG/DL >130 MG/DL *CHILDREN AND ADOLESCENTS REPRESENTS INDIVIDUALA AGED 2-19 YEARS EXCLUSIVE. Co2 26.4 mmol/L 22.0-29.0 [facility] ([facility] NORMAL RANGES Age WBC RBC HGB HCT [...] HCT IS 5% LESS SOURCE FOR DATA: Interactive TKO 1800 OPERATION MANUAL( AUTOMATED BLOOD COUNTS AND [...] DESIRABLE: <130 MG/DL <110 MG/DL BORDERLINE-HIGH RISK: 130- 159 MG/DL 110-129 MG/DL HIGH RISK: >160 MG/DL >130 MG/DL *CHILDREN AND ADOLESCENTS REPRESENTS INDIVIDUALA AGED 2-19 YEARS EXCLUSIVE. Alb 4.3 g/dL 3.5-5.2 [facility] ([facility] NORMAL RANGES Age WBC RBC HGB HCT [...] HCT IS 5% LESS SOURCE FOR DATA: STAR FESTIVAL DYN 1800 OPERATION MANUAL( AUTOMATED BLOOD COUNTS [...] DESIRABLE: <130 MG/DL <110 MG/DL BORDERLINE-HIGH RISK: 130- 159 MG/DL 110-129 MG/DL HIGH RISK: >160 MG/DL >130 MG/DL *CHILDREN AND ADOLESCENTS REPRESENTS INDIVIDUALA AGED 2-19 YEARS EXCLUSIVE. TP 7.3 g/dL 6.6-8.7 [facility] ([facility] NORMAL RANGES Age WBC RBC HGB HCT [...] HCT IS 5% LESS SOURCE FOR DATA: Interactive TKO 1800 OPERATION MANUAL( AUTOMATED BLOOD COUNTS AND [...] DESIRABLE: <130 MG/DL <110 MG/DL BORDERLINE-HIGH RISK: 130- 159 MG/DL 110-129 MG/DL HIGH RISK: >160 MG/DL >130 MG/DL *CHILDREN AND ADOLESCENTS REPRESENTS INDIVIDUALA AGED 2-19 YEARS EXCLUSIVE. Globulin 3.0 Calc [facility] ([facility] NORMAL RANGES Age WBC RBC HGB HCT [...] HCT IS 5% LESS SOURCE FOR DATA: Interactive TKO 1800 OPERATION MANUAL( AUTOMATED BLOOD COUNTS AND [...] DESIRABLE: <130 MG/DL <110 MG/DL BORDERLINE-HIGH RISK: 130- 159 MG/DL 110-129 MG/DL HIGH RISK: >160 MG/DL >130 MG/DL *CHILDREN AND ADOLESCENTS REPRESENTS INDIVIDUALA AGED 2-19 YEARS EXCLUSIVE. A/G Ratio 1.4 [facility] NORMAL RANGES Age WBC RBC HGB HCT [...] HCT IS 5% LESS SOURCE FOR DATA: Interactive TKO 1800 OPERATION MANUAL( AUTOMATED BLOOD COUNTS AND [...] DESIRABLE: <130 MG/DL <110 MG/DL BORDERLINE-HIGH RISK: 130- 159 MG/DL 110-129 MG/DL HIGH RISK: >160 MG/DL >130 MG/DL *CHILDREN AND ADOLESCENTS REPRESENTS INDIVIDUALA AGED 2-19 YEARS EXCLUSIVE. Alt (SGPT) 34 U/L 0-41 [facility] ([facility] NORMAL RANGES Age WBC RBC HGB HCT [...] HCT IS 5% LESS SOURCE FOR DATA: Interactive TKO 1800 OPERATION MANUAL( AUTOMATED BLOOD COUNTS AND [...] DESIRABLE: <130 MG/DL <110 MG/DL BORDERLINE-HIGH RISK: 130- 159 MG/DL 110-129 MG/DL HIGH RISK: >160 MG/DL >130 MG/DL *CHILDREN AND ADOLESCENTS REPRESENTS INDIVIDUALA AGED 2-19 YEARS EXCLUSIVE. Alp 140.9 U/L 40-129 Above high normal [facility] ([facility] NORMAL RANGES Age WBC RBC HGB HCT [...] HCT IS 5% LESS SOURCE FOR DATA: Interactive TKO 1800 OPERATION MANUAL( AUTOMATED BLOOD COUNTS AND [...] DESIRABLE: <130 MG/DL <110 MG/DL BORDERLINE-HIGH RISK: 130- 159 MG/DL 110-129 MG/DL HIGH RISK: >160 MG/DL >130 MG/DL *CHILDREN AND ADOLESCENTS REPRESENTS INDIVIDUALA AGED 2-19 YEARS EXCLUSIVE. Ast (Sgot) 24 U/L 0-40 [facility] NORMAL RANGES Age WBC RBC HGB HCT [...] HCT IS 5% LESS SOURCE FOR DATA: Interactive TKO 1800 OPERATION MANUAL( AUTOMATED BLOOD COUNTS AND [...] DESIRABLE: <130 MG/DL <110 MG/DL BORDERLINE-HIGH RISK: 130- 159 MG/DL 110-129 MG/DL HIGH RISK: >160 MG/DL >130 MG/DL *CHILDREN AND ADOLESCENTS REPRESENTS INDIVIDUALA AGED 2-19 YEARS EXCLUSIVE. Tbili 0.41 mg/dL 0.0-1.2 [facility] ([facility] NORMAL RANGES Age WBC RBC HGB HCT [...] HCT IS 5% LESS SOURCE FOR DATA: Interactive TKO 1800 OPERATION MANUAL( AUTOMATED BLOOD COUNTS AND [...] DESIRABLE: <130 MG/DL <110 MG/DL BORDERLINE-HIGH RISK: 130- 159 MG/DL 110-129 MG/DL HIGH RISK: >160 MG/DL >130 MG/DL *CHILDREN AND ADOLESCENTS REPRESENTS INDIVIDUALA AGED 2-19 YEARS EXCLUSIVE. Osmolality-Calculated 277.1 Calc MED E[facility] ([facility] NORMAL RANGES Age WBC RBC HGB HCT [...] HCT IS 5% LESS SOURCE FOR DATA: Interactive TKO 1800 OPERATION MANUAL( AUTOMATED BLOOD COUNTS AND [...] DESIRABLE: <130 MG/DL <110 MG/DL BORDERLINE-HIGH RISK: 130- 159 MG/DL 110-129 MG/DL HIGH RISK: >160 MG/DL >130 MG/DL *CHILDREN AND ADOLESCENTS REPRESENTS INDIVIDUALA AGED 2-19 YEARS EXCLUSIVE. Anion Gap 15 mmol/L [facility] ([facility] NORMAL RANGES Age WBC RBC HGB HCT [...] HCT IS 5% LESS SOURCE FOR DATA: Interactive TKO 1800 OPERATION MANUAL( AUTOMATED BLOOD COUNTS AND [...] DESIRABLE: <130 MG/DL <110 MG/DL BORDERLINE-HIGH RISK: 130- 159 MG/DL 110-129 MG/DL HIGH RISK: >160 MG/DL >130 MG/DL *CHILDREN AND ADOLESCENTS REPRESENTS INDIVIDUALA AGED 2-19 YEARS EXCLUSIVE. eGFR Non-Afr. Swazi 98 # [facility] ([facility] CKD-EPI eGFR 113 # [facility] ( [facility] CKD-EPI ID Date Data Source [id number] 08/15/2020 10:07:00 AM EDT [facility] ([facility] Name Value Range Interpretation Code Description Data Hedy rce(s) Supporting Document(s) WBC 7.3 10E3/uL 4.1-10.9 [facility] ([facility] NORMAL RANGES Age WBC RBC HGB HCT [...] HCT IS 5% LESS SOURCE FOR DATA: Interactive TKO 1800 OPERATION MANUAL( AUTOMATED BLOOD COUNTS AND [...] DESIRABLE: <130 MG/DL <110 MG/DL BORDERLINE-HIGH RISK: 130- 159 MG/DL 110-129 MG/DL HIGH RISK: >160 MG/DL >130 MG/DL *CHILDREN AND ADOLESCENTS REPRESENTS INDIVIDUALA AGED 2-19 YEARS EXCLUSIVE. RBC 4.59 10E6/uL 4.20-6.30 [facility] [place] [facility] NORMAL RANGES Age WBC RBC HGB HCT [...] HCT IS 5% LESS SOURCE FOR DATA: STAR FESTIVAL DYN 1800 OPERATION MANUAL( AUTOMATED BLOOD COUNTS [...] DESIRABLE: <130 MG/DL <110 MG/DL BORDERLINE-HIGH RISK: 130- 159 MG/DL 110-129 MG/DL HIGH RISK: >160 MG/DL >130 MG/DL *CHILDREN AND ADOLESCENTS REPRESENTS INDIVIDUALA AGED 2-19 YEARS EXCLUSIVE. HGB 14.1 g/dL 12.0-18.0 [facility] ([facility] NORMAL RANGES Age WBC RBC HGB HCT [...] HCT IS 5% LESS SOURCE FOR DATA: Interactive TKO 1800 OPERATION MANUAL( AUTOMATED BLOOD COUNTS AND [...] DESIRABLE: <130 MG/DL <110 MG/DL BORDERLINE-HIGH RISK: 130- 159 MG/DL 110-129 MG/DL HIGH RISK: >160 MG/DL >130 MG/DL *CHILDREN AND ADOLESCENTS REPRESENTS INDIVIDUALA AGED 2-19 YEARS EXCLUSIVE. HCT 41.2 % 37.0-51.0 [facility] ([facility] NORMAL RANGES Age WBC RBC HGB HCT [...] HCT IS 5% LESS SOURCE FOR DATA: Interactive TKO 1800 OPERATION MANUAL( AUTOMATED BLOOD COUNTS AND [...] DESIRABLE: <130 MG/DL <110 MG/DL BORDERLINE-HIGH RISK: 130- 159 MG/DL 110-129 MG/DL HIGH RISK: >160 MG/DL >130 MG/DL *CHILDREN AND ADOLESCENTS REPRESENTS INDIVIDUALA AGED 2-19 YEARS EXCLUSIVE. MCV 89.8 fL 80.0-97.0 [facility] ([facility] NORMAL RANGES Age WBC RBC HGB HCT [...] HCT IS 5% LESS SOURCE FOR DATA: Interactive TKO 1800 OPERATION MANUAL( AUTOMATED BLOOD COUNTS AND [...] DESIRABLE: <130 MG/DL <110 MG/DL BORDERLINE-HIGH RISK: 130- 159 MG/DL 110-129 MG/DL HIGH RISK: >160 MG/DL >130 MG/DL *CHILDREN AND ADOLESCENTS REPRESENTS INDIVIDUALA AGED 2-19 YEARS EXCLUSIVE. MCHC 34.2 g/dL 31.0-36.0 [facility] ([facility] NORMAL RANGES Age WBC RBC HGB HCT [...] HCT IS 5% LESS SOURCE FOR DATA: Interactive TKO 1800 OPERATION MANUAL( AUTOMATED BLOOD COUNTS AND [...] DESIRABLE: <130 MG/DL <110 MG/DL BORDERLINE-HIGH RISK: 130- 159 MG/DL 110-129 MG/DL HIGH RISK: >160 MG/DL >130 MG/DL *CHILDREN AND ADOLESCENTS REPRESENTS INDIVIDUALA AGED 2-19 YEARS EXCLUSIVE. MCH 30.7 pg 26.0-32.0 [facility] ([facility] NORMAL RANGES Age WBC RBC HGB HCT [...] HCT IS 5% LESS SOURCE FOR DATA: Interactive TKO 1800 OPERATION MANUAL( AUTOMATED BLOOD COUNTS AND [...] DESIRABLE: <130 MG/DL <110 MG/DL BORDERLINE-HIGH RISK: 130- 159 MG/DL 110-129 MG/DL HIGH RISK: >160 MG/DL >130 MG/DL *CHILDREN AND ADOLESCENTS REPRESENTS INDIVIDUALA AGED 2-19 YEARS EXCLUSIVE. PLT 179 10E3/uL 140-440 [facility] ([facility] NORMAL RANGES Age WBC RBC HGB HCT [...] HCT IS 5% LESS SOURCE FOR DATA: Interactive TKO 1800 OPERATION MANUAL( AUTOMATED BLOOD COUNTS AND [...] DESIRABLE: <130 MG/DL <110 MG/DL BORDERLINE-HIGH RISK: 130- 159 MG/DL 110-129 MG/DL HIGH RISK: >160 MG/DL >130 MG/DL *CHILDREN AND ADOLESCENTS REPRESENTS INDIVIDUALA AGED 2-19 YEARS EXCLUSIVE. RDW-CV 12.5 % 11.5-14.5 [facility] ([facility] NORMAL RANGES Age WBC RBC HGB HCT [...] HCT IS 5% LESS SOURCE FOR DATA: Interactive TKO 1800 OPERATION MANUAL( AUTOMATED BLOOD COUNTS AND [...] DESIRABLE: <130 MG/DL <110 MG/DL BORDERLINE-HIGH RISK: 130- 159 MG/DL 110-129 MG/DL HIGH RISK: >160 MG/DL >130 MG/DL *CHILDREN AND ADOLESCENTS REPRESENTS INDIVIDUALA AGED 2-19 YEARS EXCLUSIVE. Lym% 24.3 % 10.0-58.5 [facility] ([facility] NORMAL RANGES Age WBC RBC HGB HCT [...] HCT IS 5% LESS SOURCE FOR DATA: Interactive TKO 1800 OPERATION MANUAL( AUTOMATED BLOOD COUNTS AND [...] DESIRABLE: <130 MG/DL <110 MG/DL BORDERLINE-HIGH RISK: 130- 159 MG/DL 110-129 MG/DL HIGH RISK: >160 MG/DL >130 MG/DL *CHILDREN AND ADOLESCENTS REPRESENTS INDIVIDUALA AGED 2-19 YEARS EXCLUSIVE. MXD% 9.1 % 0.1-24.0 [facility] ([facility] NORMAL RANGES Age WBC RBC HGB HCT [...] HCT IS 5% LESS SOURCE FOR DATA: Interactive TKO 1800 OPERATION MANUAL( AUTOMATED BLOOD COUNTS AND [...] DESIRABLE: <130 MG/DL <110 MG/DL BORDERLINE-HIGH RISK: 130- 159 MG/DL 110-129 MG/DL HIGH RISK: >160 MG/DL >130 MG/DL *CHILDREN AND ADOLESCENTS REPRESENTS INDIVIDUALA AGED 2-19 YEARS EXCLUSIVE. Neut% 66.6 % 37.0-92.0 [facility] ([facility] NORMAL RANGES Age WBC RBC HGB HCT [...] HCT IS 5% LESS SOURCE FOR DATA: Interactive TKO 1800 OPERATION MANUAL( AUTOMATED BLOOD COUNTS AND [...] DESIRABLE: <130 MG/DL <110 MG/DL BORDERLINE-HIGH RISK: 130- 159 MG/DL 110-129 MG/DL HIGH RISK: >160 MG/DL >130 MG/DL *CHILDREN AND ADOLESCENTS REPRESENTS INDIVIDUALA AGED 2-19 YEARS EXCLUSIVE. Lym# 1.8 10E3/uL 0.6-4.1 [facility] ([facility] NORMAL RANGES Age WBC RBC HGB HCT [...] HCT IS 5% LESS SOURCE FOR DATA: Interactive TKO 1800 OPERATION MANUAL( AUTOMATED BLOOD COUNTS AND [...] DESIRABLE: <130 MG/DL <110 MG/DL BORDERLINE-HIGH RISK: 130- 159 MG/DL 110-129 MG/DL HIGH RISK: >160 MG/DL >130 MG/DL *CHILDREN AND ADOLESCENTS REPRESENTS INDIVIDUALA AGED 2-19 YEARS EXCLUSIVE. Neut# 4.8 % 2.0-7.8 [facility] ([facility] NORMAL RANGES Age WBC RBC HGB HCT [...] HCT IS 5% LESS SOURCE FOR DATA: Interactive TKO 1800 OPERATION MANUAL( AUTOMATED BLOOD COUNTS AND [...] DESIRABLE: <130 MG/DL <110 MG/DL BORDERLINE-HIGH RISK: 130- 159 MG/DL 110-129 MG/DL HIGH RISK: >160 MG/DL >130 MG/DL *CHILDREN AND ADOLESCENTS REPRESENTS INDIVIDUALA AGED 2-19 YEARS EXCLUSIVE. MXD# 0.7 10E3/uL 0.0-1.8 [facility] ([facility] NORMAL RANGES Age WBC RBC HGB HCT [...] HCT IS 5% LESS SOURCE FOR DATA: Interactive TKO 1800 OPERATION MANUAL( AUTOMATED BLOOD COUNTS AND [...] DESIRABLE: <130 MG/DL <110 MG/DL BORDERLINE-HIGH RISK: 130- 159 MG/DL 110-129 MG/DL HIGH RISK: >160 MG/DL >130 MG/DL *CHILDREN AND ADOLESCENTS REPRESENTS INDIVIDUALA AGED 2-19 YEARS EXCLUSIVE. MPV 10.3 fL 9.0-13.0 [facility] ([facility] NORMAL RANGES Age WBC RBC HGB HCT [...] HCT IS 5% LESS SOURCE FOR DATA: ELO DYN 1800 OPERATION MANUAL( AUTOMATED BLOOD COUNTS [...] DESIRABLE: <130 MG/DL <110 MG/DL BORDERLINE-HIGH RISK: 130- 159 MG/DL 110-129 MG/DL HIGH RISK: >160 MG/DL >130 MG/DL *CHILDREN AND ADOLESCENTS REPRESENTS INDIVIDUALA AGED 2-19 YEARS EXCLUSIVE. ID Date Data Source [id number] 08/15/2020 10:06:00 AM EDT [facility] ([facility] Name Value Range Interpretation Code Description Data Hedy rce(s) Supporting Document(s) Comment 1 Laboratory test result ME [facility] ([facility] Color Urine Laboratory test result M EDENT ([facility] Appearance of Urine Laboratory test result [facility] ([facility] Specific [place] 1.030 1.00-1.03 [facility] ([facility] Glucose Urine Laboratory test result [facility] ([facility] Bilirubin.total [Presence] in Urine by Test strip Laboratory test res ult [facility] ([facility] PH Urine 6.0 5.0-8.0 [facility] ([facility] Blood Urine Laboratory test result M EDENT ([facility] Protein Urine Laboratory test result Above high normal [facility] ([facility] Ketones Laboratory test result [facility] ([facility] Nitrite Laboratory test result [facility] ([facility] Urobilinogen 0.2 EU/dl 0.2-1.0 [facility] ([facility] Leukocytes Laboratory test result ME [facility] ([facility]) ID Date Data Source [id number] 07/10/2020 12:00:00 AM EST [facility] Imaging Kaushik Fish DO Patient Name: KAYE TOLEDO [address] Date [place] : 1955[place] [address] Date of Exam: 07/10/2020#: Fax: [phone] EXAM: SHOULDER (COMPLETE-MINIMUM 2 VIEWS) LEFT X-RAYCLINICAL INFORMATION: Sprain left shoulder.Three views. These images were obtained using digital radiography.No acute fracture or dislocation is seen. There is moderate narrowing andspurring at the acromioclavicular joint. There is mild narrowing andspurring at the glenohumeral joint.IMPRESSION:Degenerative changes without fracture or dislocation.CHRIS Maya/Aaliyah you for referring KAYE TOLEDO to our office. Electronically Signed - MALISSA CHAVIRA MD 07/10/20 17:36 Name Value Range Interpretation Code Description Data Hedy rce(s) Supporting Document(s) ID Date Data Source [id number] 07/10/2020 12:00:00 AM EST [facility] Kaushik Fish DO Patient Name: [facility] Date of : 1955[place] [address] Date of Exam: 07/10/2020#: Fax: [phone] EXAM: RIBS LEFT X-RAYCLINICAL INFORMATION: Sprain left ribs.Four views. These images were obtained using digital radiography.No fracture or bone lesion is seen. The left lung appears unremarkable.IMPRESSION:No radiographic evidence of left rib fracture.CHRIS Maya/Aaliyah you for referring KAYE TOLEDO to our office. Electronically Signed - MALISSA CHAVIRA MD 07/10/20 17:36 Name Value Range Interpretation Code Description Data Hedy rce(s) Supporting Document(s) ID Date Data Source [id number] 05/09/2020 09:12:00 AM EST [facility] ([facility] Name Value Range Interpretation Code Description Data Hedy rce(s) Supporting Document(s) Creat Ur 86.1 mg/dL 0.0-30.0 Above high normal [facility] ([facility] {SOURCE: Random Void~NURSE COLLECTED? N Is patient fasting? Y Is patient fasting? Y MA/Creat Ratio 679.21 MCG/MG 0.01-30.00 Above high normal [facility] ([facility] {SOURCE: Random Void~NURSE COLLECTED? N Is patient fasting? Y Is patient fasting? Y Microalbumin 584.80 mg/L 0.00-0.00 Above high normal [facility] ([facility] {SOURCE: Random Void~NURSE COLLECTED? N Is patient fasting? Y Is patient fasting? Y ID Date Data Source [id number] 05/09/2020 09:12:00 AM EST [facility] ([facility] Name Value Range Interpretation Code Description Data Hdey rce(s) Supporting Document(s) Urinalysis Laboratory test result D[facility] ([facility] {SOURCE: Random Void~NURSE COLLECTED? N Is patient fasting? Y Is patient fasting? Y Source Laboratory test result [facility] ([facility] {SOURCE: Random Void~NURSE COLLECTED? N Is patient fasting? Y Is patient fasting? Y Color Laboratory test result [facility] ([facility] {SOURCE: Random Void~NURSE COLLECTED? N Is patient fasting? Y Is patient fasting? Y Clarity Laboratory test result [facility] ([facility] {SOURCE: Random Void~NURSE COLLECTED? N Is patient fasting? Y Is patient fasting? Y Spec [place] 1.015 1.001-1.030 [facility] ([facility] {SOURCE: Random Void~NURSE COLLECTED? N Is patient fasting? Y Is patient fasting? Y Glucose Laboratory test result [facility] ([facility] {SOURCE: Random Void~NURSE COLLECTED? N Is patient fasting? Y Is patient fasting? Y pH 6 5-9 [facility] ([facility] {SOURCE: Random Void~NURSE COLLECTED? N Is patient fasting? Y Is patient fasting? Y Ketone Laboratory test result [facility] ([facility] {SOURCE: Random Void~NURSE COLLECTED? N Is patient fasting? Y Is patient fasting? Y Bilirubin Laboratory test result ME [facility]ENT ([facility] {SOURCE: Random Void~NURSE COLLECTED? N Is patient fasting? Y Is patient fasting? Y Nitrite Laboratory test result [facility] ([facility] {SOURCE: Random Void~NURSE COLLECTED? N Is patient fasting? Y Is patient fasting? Y Protein 100 Abnormal (applies to non-numeric res ults) [facility] ([facility] {SOURCE: Random Void~NURSE COLLECTED? N Is patient fasting? Y Is patient fasting? Y Leuk Est Laboratory test result [facility] ([facility] {SOURCE: Random Void~NURSE COLLECTED? N Is patient fasting? Y Is patient fasting? Y Urobilinogen Laboratory test result [facility] ([facility] {SOURCE: Random Void~NURSE COLLECTED? N Is patient fasting? Y Is patient fasting? Y Blood Laboratory test result [facility] ([facility] {SOURCE: Random Void~NURSE COLLECTED? N Is patient fasting? Y Is patient fasting? Y Microscopic Laboratory test result M EDENT ([facility] {SOURCE: Random Void~NURSE COLLECTED? N Is patient fasting? Y Is patient fasting? Y WBC Laboratory test result [facility] ([facility] {SOURCE: Random Void~NURSE COLLECTED? N Is patient fasting? Y Is patient fasting? Y Epithelial Laboratory test result ME [facility] ([facility] {SOURCE: Random Void~NURSE COLLECTED? N Is patient fasting? Y Is patient fasting? Y RBC Laboratory test result [facility] ([facility] {SOURCE: Random Void~NURSE COLLECTED? N Is patient fasting? Y Is patient fasting? Y Bacteria Laboratory test result [facility] ([facility] {SOURCE: Random Void~NURSE COLLECTED? N Is patient fasting? Y Is patient fasting? Y ID Date Data Source [id number] 05/09/2020 09:12:00 AM EST [facility] ([facility] Name Value Range Interpretation Code Description Data Hedy rce(s) Supporting Document(s) Creatine kinase [Enzymatic activity/volume] in Serum or Plasma 87 U /L 30-170 [facility] ([facility] {SOURCE: Random Void~NURSE COLLECTED? N Is patient fasting? Y Is patient fasting? Y ID Date Data Source [id number] 05/09/2020 09:12:00 AM EST [facility] ([facility] Name Value Range Interpretation Code Description Data Hedy rce(s) Supporting Document(s) Cve Panel Laboratory test result ME [facility] ([facility] {SOURCE: Random Void~NURSE COLLECTED? N Is patient fasting? Y Is patient fasting? Y Cholesterol 153 mg/dL 131-200 [facility] ([facility] {SOURCE: Random Void~NURSE COLLECTED? N Is patient fasting? Y Is patient fasting? Y HDL 39 mg/dL 29-86 [facility] ([facility] {SOURCE: Random Void~NURSE COLLECTED? N Is patient fasting? Y Is patient fasting? Y Triglycerides 286 mg/dL 35-160 Above high normal [facility] ([facility] {SOURCE: Random Void~NURSE COLLECTED? N Is patient fasting? Y Is patient fasting? Y Risk Factor 3.9 3.4-4.9 [facility] ([facility] {SOURCE: Random Void~NURSE COLLECTED? N Is patient fasting? Y Is patient fasting? Y LDL/HDL 1.72 1.00-3.55 [facility] ([facility] {SOURCE: Random Void~NURSE COLLECTED? N Is patient fasting? Y Is patient fasting? Y LDL 67 mg/dL 65-175 [facility] ([facility] {SOURCE: Random Void~NURSE COLLECTED? N Is patient fasting? Y Is patient fasting? Y ID Date Data Source [id number] 05/09/2020 09:12:00 AM EST [facility] ([facility] Name Value Range Interpretation Code Description Data Hedy rce(s) Supporting Document(s) Comprehensive Metabo Laboratory test result [facility] ([facility] {SOURCE: Random Void~NURSE COLLECTED? N Is patient fasting? Y Is patient fasting? Y Sodium 134 meq/L 134-153 [facility] ([facility] {SOURCE: Random Void~NURSE COLLECTED? N Is patient fasting? Y Is patient fasting? Y Chloride 98 meq/L 98-107 [facility] ([facility] {SOURCE: Random Void~NURSE COLLECTED? N Is patient fasting? Y Is patient fasting? Y Potassium 4.4 meq/L 3.6-5.0 [facility] ([facility] {SOURCE: Random Void~NURSE COLLECTED? N Is patient fasting? Y Is patient fasting? Y Co2 26 meq/L 22-30 [facility] ([facility] {SOURCE: Random Void~NURSE COLLECTED? N Is patient fasting? Y Is patient fasting? Y Glucose 126 mg/dL 65-110 Above high normal [facility] ([facility] {SOURCE: Random Void~NURSE COLLECTED? N Is patient fasting? Y Is patient fasting? Y BUN 15 mg/dL 7-21 [facility] ([facility] {SOURCE: Random Void~NURSE COLLECTED? N Is patient fasting? Y Is patient fasting? Y Creatinine 0.6 mg/dL 0.7-1.5 Below low normal [facility] ( [facility] {SOURCE: Random Void~NURSE COLLECTED? N Is patient fasting? Y Is patient fasting? Y BUN/Creat 25 8-27 [facility] ([facility] {SOURCE: Random Void~NURSE COLLECTED? N Is patient fasting? Y Is patient fasting? Y Albumin 4.2 g/dL 3.9-5.0 [facility] ([facility] {SOURCE: Random Void~NURSE COLLECTED? N Is patient fasting? Y Is patient fasting? Y Total Protein 6.9 g/dL 6.3-8.2 [facility] ([facility] {SOURCE: Random Void~NURSE COLLECTED? N Is patient fasting? Y Is patient fasting? Y Globulin 2.7 GM/DL 2.4-3.2 [facility] ([facility] {SOURCE: Random Void~NURSE COLLECTED? N Is patient fasting? Y Is patient fasting? Y Calcium 9.3 mg/dL 8.4-10.2 [facility] ([facility] [facility] {SOURCE: Random Void~NURSE COLLECTED? N Is patient fasting? Y Is patient fasting? Y A/G Ratio 1.6 0.8-2.0 MEDENT ([facility] {SOURCE: Random Void~NURSE COLLECTED? N Is patient fasting? Y Is patient fasting? Y Total Bili Laboratory test result 0.2-1.3 ME DENT ([facility] {SOURCE: Random Void~NURSE COLLECTED? N Is patient fasting? Y Is patient fasting? Y Alkaline Phos 105 U/L 38-126 MEDENT ([facility] {SOURCE: Random Void~NURSE COLLECTED? N Is patient fasting? Y Is patient fasting? Y SGPT/Alt 42 U/L 7-56 MED[facility] ([facility] {SOURCE: Random Void~NURSE COLLECTED? N Is patient fasting? Y Is patient fasting? Y Sgot/Ast 39 U/L 5-40 MED[facility] ([facility] {SOURCE: Random Void~NURSE COLLECTED? N Is patient fasting? Y Is patient fasting? Y Anion Gap 10.0 mmol/L 8.0-16.0 MED[facility] ([facility] {SOURCE: Random Void~NURSE COLLECTED? N Is patient fasting? Y Is patient fasting? Y Age 64 yrs MEDENT ([facility] {SOURCE: Random Void~NURSE COLLECTED? N Is patient fasting? Y Is patient fasting? Y Non-Aa GFR Laboratory test result ME DENT ([facility] {SOURCE: Random Void~NURSE COLLECTED? N Is patient fasting? Y Is patient fasting? Y Afr Amer GFR Laboratory test result MED[facility] ([facility] {SOURCE: Random Void~NURSE COLLECTED? N Is patient fasting? Y Is patient fasting? Y ID Date Data Source [id number] 05/09/2020 09:12:00 AM EST MEDENT ([facility] Name Value Range Interpretation Code Description Data Hedy rce(s) Supporting Document(s) CBC W/Automated Diff Laboratory test result MEDENT ([facility] {SOURCE: Random Void~NURSE COLLECTED? N Is patient fasting? Y Is patient fasting? Y WBC 6.6 10^3/uL 4.2-11.0 MEDENT ([facility] {SOURCE: Random Void~NURSE COLLECTED? N Is patient fasting? Y Is patient fasting? Y RBC 4.70 10^6/uL 4.50-6.30 MEDENT ([facility] {SOURCE: Random Void~NURSE COLLECTED? N Is patient fasting? Y Is patient fasting? Y Hematocrit 42.9 % 41.0-51.0 MEDENT ([facility] {SOURCE: Random Void~NURSE COLLECTED? N Is patient fasting? Y Is patient fasting? Y MCV 91.3 fL 80.0-94.0 MEDENT ([facility] {SOURCE: Random Void~NURSE COLLECTED? N Is patient fasting? Y Is patient fasting? Y Hemoglobin 14.2 g/dL 14.0-16.0 MEDENT ([facility] {SOURCE: Random Void~NURSE COLLECTED? N Is patient fasting? Y Is patient fasting? Y MCHC 33.1 g/dL 31.0-36.0 MEDENT ([facility] {SOURCE: Random Void~NURSE COLLECTED? N Is patient fasting? Y Is patient fasting? Y MCH 30.2 pg 27.0-34.0 MEDENT ([facility] {SOURCE: Random Void~NURSE COLLECTED? N Is patient fasting? Y Is patient fasting? Y Platelets 220 10^3/uL 150-450 MEDENT ([facility] {SOURCE: Random Void~NURSE COLLECTED? N Is patient fasting? Y Is patient fasting? Y RDW 12.5 % 11.5-14.8 [facility] ([facility] {SOURCE: Random Void~NURSE COLLECTED? N Is patient fasting? Y Is patient fasting? Y Neut 63.8 % 37.0-80.0 MEDENT ([facility] {SOURCE: Random Void~NURSE COLLECTED? N Is patient fasting? Y Is patient fasting? Y MPV 10.6 fL 7.4-10.4 Above high normal MEDENT ([facility] {SOURCE: Random Void~NURSE COLLECTED? N Is patient fasting? Y Is patient fasting? Y Lymph 26.1 % 25.0-40.0 MEDENT ([facility] {SOURCE: Random Void~NURSE COLLECTED? N Is patient fasting? Y Is patient fasting? Y [place]au 5.2 % 3.0-8.0 MEDENT ([facility] {SOURCE: Random Void~NURSE COLLECTED? N Is patient fasting? Y Is patient fasting? Y Eos 3.9 % 0.0-7.0 MEDENT ([facility] {SOURCE: Random Void~NURSE COLLECTED? N Is patient fasting? Y Is patient fasting? Y %Ig 0.2 % 0.0-0.0 Above high normal MEDENT ([facility] {SOURCE: Random Void~NURSE COLLECTED? N Is patient fasting? Y Is patient fasting? Y Baso 0.8 % 0.0-2.0 MEDENT ([facility] {SOURCE: Random Void~NURSE COLLECTED? N Is patient fasting? Y Is patient fasting? Y #Lymph 1.72 10^3/uL 0.60-3.40 MEDENT ([facility] {SOURCE: Random Void~NURSE COLLECTED? N Is patient fasting? Y Is patient fasting? Y %NRBC 0.0 % 0.0-0.0 MEDENT ([facility] {SOURCE: Random Void~NURSE COLLECTED? N Is patient fasting? Y Is patient fasting? Y #Neut 4.21 10^3/uL 2.00-6.90 MEDENT ([facility] {SOURCE: Random Void~NURSE COLLECTED? N Is patient fasting? Y Is patient fasting? Y #Eos 0.26 10^3/uL 0.00-0.70 MEDENT ([facility] {SOURCE: Random Void~NURSE COLLECTED? N Is patient fasting? Y Is patient fasting? Y #[place] 0.34 10^3/uL 0.00-0.90 MEDENT ([facility] {SOURCE: Random Void~NURSE COLLECTED? N Is patient fasting? Y Is patient fasting? Y #Baso 0.05 10^3/uL 0.00-0.20 MEDENT ([facility] {SOURCE: Random Void~NURSE COLLECTED? N Is patient fasting? Y Is patient fasting? Y #Ig 0.01 10^3/uL 0.00-0.10 MEDENT ([facility] {SOURCE: Random Void~NURSE COLLECTED? N Is patient fasting? Y Is patient fasting? Y #NRBC 0.00 10^3/uL 0.00-0.00 MED[facility] ([facility] {SOURCE: Random Void~NURSE COLLECTED? N Is patient fasting? Y Is patient fasting? Y Manual Diff Laboratory test result Zhao DE SANTIAGO ([facility] {SOURCE: Random Void~NURSE COLLECTED? N Is patient fasting? Y Is patient fasting? Y RBC Morph Laboratory test result ME STUART ([facility] {SOURCE: Random Void~NURSE COLLECTED? N Is patient fasting? Y Is patient fasting? Y ID Date Data Source [id number] 05/09/2020 05:40:00 PM [facility] Name Value Range Interpretation Code Description Data Hedy rce(s) Supporting Document(s) [facility] LIPID PAN[facility] Cholesterol [Mass/volume] in Serum or Plasma 153 MG/DL 131 - 200 [facility] Deprecated Triglyceride [Mass/volume] in Serum or Plasma 286 MG/DL 3 5 - 160 H [facility] HDL 39 MG/DL 29 - 86 [facility] Cholesterol in LDL [Mass/volume] in Serum or Plasma by Direc t assay 67 mg/dL 65 - 175 [facility] Cholesterol.total/Cholesterol in HDL [Mass Ratio] in Serum o r Plasma 3.9 3.4 - 4.9 [facility] LDL/HDL 1.72 1.00 - 3.55 [facility] ital CVE RISK CHOL/HDL LDL/HDLMEN: 1/2 AVERAGE 3.43 1.00 AVERAGE 4.97 3.55 2X AVERAGE 9.55 6.25 3X AVERAGE 23.99 7.99WOMEN: 1/2 AVERAGE 3.27 1.47 AVERAGE 4.44 3.22 2X AVERAGE 7.05 5.03 3X AVERAGE 11.04 6.14 ID Date Data Source [id number] 05/09/2020 05:40:00 PM [facility] Name Value Range Interpretation Code Description Data Hedy rce(s) Supporting Document(s) COMPREHENSIVE METABOLIC PANEL [facility] COMPREHENSIVE METABOLIC PANEL Sodium [Moles/volume] in Serum or Plasma 134 mEq/L 134 - 153 [facility] Potassium [Moles/volume] in Serum or Plasma 4.4 mEq/L 3.6 - 5.0 [facility] Chloride [Moles/volume] in Serum or Plasma 98 mEq/L 98 - 107 [facility] Carbon dioxide, total [Moles/volume] in Serum or Plasma 26 MEQ/L 22 - 30 [facility] Glucose [Mass/volume] in Serum or Plasma 126 MG/DL 65 - 110 H [facility] BUN 15 MG/DL 7 - 21 [facility] Creatinine [Mass/volume] in Serum or Plasma 0.6 MG/DL 0.7 - 1.5 L [facility] BUN/CREAT 25 8 - 27 [facility] Protein [Mass/volume] in Serum or Plasma 6.9 G/DL 6.3 - 8.2 [facility] Albumin [Mass/volume] in Serum or Plasma 4.2 G/DL 3.9 - 5.0 [facility] Globulin [Mass/volume] in Serum by calculation 2.7 GM/DL 2.4 - 3.2 [facility] A/G RATIO 1.6 0.8 - 2.0 [facility] Calcium [Mass/volume] in Serum or Plasma 9.3 MG/DL 8.4 - 10.2 [facility] Bilirubin.total [Mass/volume] in Serum or Plasma <0.7 MG/DL 0.2 - 1.3 [facility] Alkaline phosphatase [Enzymatic activity/volume] in Serum or Plasma 105 U/L 38 - 126 [facility] Aspartate aminotransferase [Enzymatic activity/volume] in Serum or Plasma 39 U/L 5 - 40 [facility] Alanine aminotransferase [Enzymatic activity/volume] in Seru m or Plasma 42 U/L 7 - 56 [facility] Anion gap 3 in Serum or Plasma 10.0 mmol/L 8.0 - 16.0 [facility] AGE 64 yrs [facility] al NON-AA GFR >60 mL/min [facility] ital AFR AMER GFR >60 mL/min [facility] Male GFR In terprentation 20-49 yrs >60 mL/min Normal 50-59 yrs >56 mL/min Normal 60-69 yrs >49 mL/min Normal 70-79yrs >42 mL/min Normal 80 and above >35 mL/min Normal Female GFR Interpretation 20-39 yrs >60 mL/min Normal 40-49 yrs >58 mL/min Normal 50-59 yrs >51 mL/min Normal 60-69 yrs >45 mL/min Normal 70-79 yrs >39 mL/min Normal 80 and above >32 mL/min Normal ID Date Data Source [id number] 05/09/2020 05:39:00 PM EST [facility] Name Value Range Interpretation Code Description Data Hedy rce(s) Supporting Document(s) Creatine kinase [Enzymatic activity/volume] in Serum or Plasma 8 7 U/L 30 - 170 [facility] ID Date Data Source [id number] 05/09/2020 05:33:00 PM [facility] Name Value Range Interpretation Code Description Data Hedy rce(s) Supporting Document(s) URINALYSIS [facility] quynh URINALYSIS SOURCE R [facility] COLOR yellow NORMAL: Yellow [facility] CLARITY clear NORMAL: Clear [facility] Specific gravity of Urine by Test strip 1.015 1.001 - 1.030 [facility] pH 6 5 - 9 [facility] Glucose [Mass/volume] in Urine by Test strip NORM NORMAL: Negat [facility] Bilirubin.total [Presence] in Urine by Test strip NEG NORMAL: Negative [facility] Ketones [Presence] in Urine by Test strip NEG NORMAL: Negative [facility] Protein [Mass/volume] in Urine by Test strip 100 NORMAL: Negat [facility] Nitrite [Presence] in Urine by Test strip NEG NORMAL: Negative [facility] BLOOD NEG NORMAL: Negative [facility] Leukocyte esterase [Presence] in Urine by Test strip NEG SALVADOR L: Negative [facility] Urobilinogen [Mass/volume] in Urine by Test strip NOR less taylor n 1.0 mg/dL [facility] MICROSCOPIC See Below [facility] ital WBC 1 - 3 NORMAL: NONE SEEN [facility] Erythrocytes [#/volume] in Urine by Test strip 1 - 3 NORMAL: NON E SEEN [facility] EPITHELIAL FEW NORMAL: NONE SEEN [facility] Bacteria [Presence] in Urine sediment by Light microscopy Tr tom NORMAL: NONE SEEN [facility] ID Date Data Source [id number] 05/09/2020 05:33:00 PM EST [facility] Name Value Range Interpretation Code Description Data Hedy rce(s) Supporting Document(s) CBC W/AUTOMATED DIFF [facility] COMPLETE BLOOD COUNT Leukocytes [#/volume] in Blood by Automated count 6.6 10^3/uL 4.2 - 1 1.0 [facility] Erythrocytes [#/volume] in Blood by Automated count 4.70 10^6/uL 4. 50 - 6.30 [facility] Hemoglobin [Mass/volume] in Blood 14.2 g/dL 14.0 - 16.0 [facility] Hematocrit [Volume Fraction] of Blood by Automated count 42.9 % 4 1.0 - 51.0 [facility] Erythrocyte mean corpuscular volume [Entitic volume] by Auto mated count 91.3 fL 80.0 - 94.0 [facility] Erythrocyte mean corpuscular hemoglobin [Entitic mass] by Automated count 30.2 pg 27.0 - 34.0 [facility] Erythrocyte mean corpuscular hemoglobin concentration [Mass/volume] by Automated count 33.1 g/dL 31.0 - 36.0 [facility] Erythrocyte distribution width [Ratio] by Automated count 12.5 % 11.5 - 14.8 [facility] Platelets [#/volume] in Blood by Automated count 220 10^3/uL 150 - 45 0 [facility] Platelet mean volume [Entitic volume] in Blood by Automated count 10.6 fL 7.4 - 10.4 H [facility] Neutrophils/100 leukocytes in Blood by Automated count 63.8 % 37. 0 - 80.0 [facility] Lymphocytes/100 leukocytes in Blood by Manual count 26.1 % 25.0 - 40.0 [facility] Monocytes/100 leukocytes in Blood by Automated count 5.2 % 3.0 - 8.0 [facility] Eosinophils/100 leukocytes in Blood by Automated count 3.9 % 0.0 - 7.0 [facility] Basophils/100 leukocytes in Blood by Automated count 0.8 % 0.0 - 2.0 [facility] %IG 0.2 % 0.0 - 0.0 H [facility] %NRBC 0.0 % 0.0 - 0.0 [facility] al Neutrophils [#/volume] in Blood by Automated count 4.21 10^3/uL 2.00 - 6.90 [facility] Lymphocytes [#/volume] in Blood by Automated count 1.72 10^3/uL 0.60 - 3.40 [facility] Monocytes [#/volume] in Blood by Automated count 0.34 10^3/uL 0.00 - 0.90 [facility] Eosinophils [#/volume] in Blood by Automated count 0.26 10^3/uL 0.00 - 0.70 [facility] Basophils [#/volume] in Blood by Automated count 0.05 10^3/uL 0.00 - 0.20 [facility] #IG 0.01 10^3/uL 0.00 - 0.10 [facility] ospital #NRBC 0.00 10^3/uL 0.00 - 0.00 [facility] ospital MANUAL DIFF NOT INDICATED [facility] RBC MORPH NOT INDICATED [facility] spital ID Date Data Source [id number] 05/09/2020 05:33:00 PM EST [facility] Name Value Range Interpretation Code Description Data Hedy rce(s) Supporting Document(s) CREAT UR 86.1 MG/DL 0.0 - 30.0 H [facility] ital MICROALBUMIN 584.80 MG/L 0.00 - 0.00 H [facility] MA/CREAT RATIO 679.21 MCG/MG 0.01 - 30.00 H [facility] [employer] st ates that Microalbuminemia is present if the Microalbumin/Creatinine ratio exceeds 30 mcg/mg. The threshold for Clinical Albuminuria is reached at 300 mcg/mg. The classification of a patient should be based upon at least 2 or 3 abnormal results on specimens collected within a 3 to 6 month timeframe. ID Date Data Source [id number] 02/01/2020 09:48:00 AM EDT [facility] ([facility] Name Value Range Interpretation Code Description Data Hedy rce(s) Supporting Document(s) Creatine kinase [Enzymatic activity/volume] in Serum or Plasma 88 U /L 41-331 [facility] ([facility] ID Date Data Source [id number] 02/01/2020 09:48:00 AM EDT MEDENT ([facility] Name Value Range Interpretation Code Description Data Hedy rce(s) Supporting Document(s) Triglyceride [Mass/volume] in Serum or Plasma 364 mg/dL 0-149 Above high normal [facility] ([facility] Cholesterol in HDL [Mass/volume] in Serum or Plasma 38 mg/dL Below low normal [facility] ([facility] Cholesterol [Mass/volume] in Serum or Plasma 159 mg/dL 100-199 [facility] ([facility] Laboratory test finding (navigational concept) 64 mg/dL 0-99 [facility] ([facility] Laboratory test finding (navigational concept) 57 mg/dL 5-40 Above high normal [facility] ([facility] Comment: Laboratory test result [facility] ([facility] ID Date Data Source [id number] 02/01/2020 09:48:00 AM EDT MEDENT ([facility] Name Value Range Interpretation Code Description Data Hedy rce(s) Supporting Document(s) Glucose [Mass/volume] in Serum or Plasma 129 mg/dL 65-99 Above high normal [facility] ([facility] BUN 19 mg/dL 8-27 [facility] ([facility] eGFR If NonAfricn Am 100 mL/min/1.73 [facility] ([facility] Creatinine [Mass/volume] in Serum or Plasma 0.68 mg/dL 0.76 -1.27 Below low normal [facility] ([facility] ) eGFR If Africn Am 115 mL/min/1.73 ME DENT ([facility] Urea nitrogen/Creatinine [Mass Ratio] in Serum or Plasma 28 10-24 Above high normal [facility] ([facility] Sodium [Moles/volume] in Serum or Plasma 138 mmol/L 134-144 [facility] ([facility] Potassium [Moles/volume] in Serum or Plasma 4.0 mmol/L 3.5-5.2 [facility] ([facility] Calcium [Mass/volume] in Serum or Plasma 9.2 mg/dL 8.6-10.2 MEDENT ([facility] Carbon dioxide, total [Moles/volume] in Serum or Plasma 24 mmol/L 20 -29 [facility] ([facility] Chloride [Moles/volume] in Serum or Plasma 100 mmol/L 96-106 MED[facility] ([facility] Albumin [Mass/volume] in Serum or Plasma 4.2 g/dL 3.8-4.8 [facility] ([facility] Protein [Mass/volume] in Serum or Plasma 7.2 g/dL 6.0-8.5 [facility] ([facility] Globulin [Mass/volume] in Serum by calculation 3.0 g/dL 1.5-4.5 MED[facility] ([facility] Bilirubin.total [Mass/volume] in Serum or Plasma 0.4 mg/dL 0.0-1.2 [facility] ([facility] Alkaline phosphatase [Enzymatic activity/volume] in Serum or Plasma 94 IU/L 39-117 [facility] ([facility] Albumin/Globulin [Mass Ratio] in Serum or Plasma 1.4 1.2-2.2 [facility] ([facility] Aspartate aminotransferase [Enzymatic activity/volume] in Serum or Plasma 32 IU/L 0-40 [facility] Alanine aminotransferase [Enzymatic activity/volume] in Seru m or Plasma 48 IU/L 0-44 Above high normal [facility] ([facility] ID Date Data Source [id number] 02/01/2020 09:48:00 AM EDT MEDENT ([facility] Name Value Range Interpretation Code Description Data Hedy rce(s) Supporting Document(s) Leukocytes [#/volume] in Blood by Automated count 6.3 x10E3/uL 3.4-10 .8 [facility] ([facility] Erythrocytes [#/volume] in Blood by Automated count 4.53 x10E6/uL 4.1 4-5.80 [facility] ([facility] Erythrocyte mean corpuscular volume [Entitic volume] by Auto mated count 90 fL 79-97 MED[facility] ([facility] Hemoglobin [Mass/volume] in Blood 13.8 g/dL 13.0-17.7 [facility] ([facility] Hematocrit [Volume Fraction] of Blood by Automated count 40.9 % 3 7.5-51.0 [facility] ([facility] Erythrocyte mean corpuscular hemoglobin [Entitic mass] by Automated count 30.5 pg 26.6-33.0 MEDENT ([facility] Erythrocyte distribution width [Ratio] by Automated count 12.9 % 11.6-15.4 [facility] ([facility] Erythrocyte mean corpuscular hemoglobin concentration [Mass/volume] by Automated count 33.7 g/dL 31.5-35.7 [facility] ([facility] Lymphs 25 % [facility] Neutrophils 63 % MED[facility] ([facility] Platelets [#/volume] in Blood by Automated count 191 x10E3/uL 150-450 [facility] ([facility] Basophils/100 leukocytes in Blood by Automated count 1 % [facility] ([facility] Monocytes/100 leukocytes in Blood by Automated count 7 % [facility] ([facility] Eosinophils/100 leukocytes in Blood by Automated count 4 % [facility] ([facility] Immature cells [#/volume] in Blood Laboratory test result MED[facility] ([facility] Neutrophils [#/volume] in Blood by Automated count 4.0 x10E3/uL 1.4-7 .0 [facility] ([facility] Lymphocytes [#/volume] in Blood 1.6 x10E3/uL 0.7-3.1 MEDENT ([facility] Eosinophils [#/volume] in Blood by Automated count 0.3 x10E3/uL 0.0-0 .4 MEDENT ([facility] Monocytes [#/volume] in Blood 0.4 x10E3/uL 0.1-0.9 MED[facility] ([facility] Basophils [#/volume] in Blood by Automated count 0.1 x10E3/uL 0.0-0.2 MED[facility] ([facility] Immature granulocytes [#/volume] in Blood by Automated count 0.0 x10E3/uL 0.0-0.1 [facility] Immature granulocytes/100 leukocytes in Blood by Automated count 0 % MED[facility] ([facility] Morphology [Interpretation] in Blood Narrative Laboratory test result MEDENT ([facility] Nucleated erythrocytes/100 leukocytes [Ratio] in Blood by Automated count Laboratory test result MEDENT ([facility] Procedure Social History No Information Vital Signs ID Date Data Source [id number] Name Value Range Interpretation Code Description Data Source(s) Systolic blood pressure 142 mm[Hg] 142 mm[Hg] M EDENT ([facility] Diastolic blood pressure 82 mm[Hg] 82 mm[Hg] MEDENT ([facility] Body temperature 97.7 [degF] 97.7 [degF] MEDENT ([facility] Heart rate 82 /min 82 /min MED[facility] ([facility] Respiratory rate 16 /min 16 /min MED[facility] ( [facility] Body height 75 [in_i] 75 [in_i] MEDENT ([facility] 6'3" Body weight 262.00 [lb_av] 262.00 [lb_av] MEDEN T ([facility] [place] body weight 196 [lb_av] 196 [lb_av] MEDEN T ([facility] Body mass index (BMI) [Ratio] 32.7 kg/m2 32.7 k g/m2 [facility] ([facility] Oxygen saturation in Arterial blood by Pulse oximetry 97 % 97 % [facility] ([facility] Body height 75 [in_i] 75 [in_i] [facility] ([facility] 6'3" Body weight 264.00 [lb_av] 264.00 [lb_av] MEDEN T ([facility]) Systolic blood pressure 132 mm[Hg] 132 mm[Hg] M EDENT ([facility]) Diastolic blood pressure 79 mm[Hg] 79 mm[Hg] MEDENT ([facility]) Heart rate 63 /min 63 /min [facility] ([facility] Body mass index (BMI) [Ratio] 33.0 kg/m2 33.0 k g/m2 MED[facility] ([facility]) Body weight 119.750 kg 119.750 kg [facility] ([facility] Body temperature 97.0 [degF] 97.0 [degF] MEDENT ([facility]) Systolic blood pressure 126 mm[Hg] 126 mm[Hg] M EDENT ([facility] Diastolic blood pressure 82 mm[Hg] 82 mm[Hg] MED[facility] ([facility] Body temperature 98.0 [degF] 98.0 [degF] MED[facility] ([facility] Heart rate 78 /min 78 /min [facility] ([facility] Respiratory rate 16 /min 16 /min [facility] ( [facility] Body height 75 [in_i] 75 [in_i] MEDENT ([facility] 6'3" Body weight 263.00 [lb_av] 263.00 [lb_av] MEDEN T ([facility] [place] body weight 196 [lb_av] 196 [lb_av] MEDEN T ([facility] Body mass index (BMI) [Ratio] 32.9 kg/m2 32.9 k g/m2 MEDENT ([facility] Oxygen saturation in Arterial blood by Pulse oximetry 98 % 98 % MEDENT ([facility] Systolic blood pressure 132 mm[Hg] 132 mm[Hg] M EDENT ([facility] Diastolic blood pressure 84 mm[Hg] 84 mm[Hg] [facility] ([facility] Body temperature 97.8 [degF] 97.8 [degF] [facility] ([facility] Heart rate 68 /min 68 /min [facility] ([facility] Respiratory rate 16 /min 16 /min MEDENT ( [facility] Body height 75 [in_i] 75 [in_i] MEDENT ([facility] 6'3" Body weight 263.00 [lb_av] 263.00 [lb_av] MEDEN T ([facility] [place] body weight 196 [lb_av] 196 [lb_av] MEDEN T ([facility] Body mass index (BMI) [Ratio] 32.9 kg/m2 32.9 k g/m2 MED[facility] ([facility] Oxygen saturation in Arterial blood by Pulse oximetry 97 % 97 % MED[facility] ([facility] Systolic blood pressure 140 mm[Hg] 140 mm[Hg] M EDENT ([facility] Diastolic blood pressure 82 mm[Hg] 82 mm[Hg] MEDENT ([facility] Body temperature 96.3 [degF] 96.3 [degF] MEDENT ([facility] Heart rate 76 /min 76 /min [facility] ([facility] Respiratory rate 16 /min 16 /min MEDENT ( [facility] Body height 75 [in_i] 75 [in_i] MEDENT ([facility] 6'3" Body weight 267.00 [lb_av] 267.00 [lb_av] MEDEN T ([facility] [place] body weight 196 [lb_av] 196 [lb_av] MEDEN T ([facility] Body mass index (BMI) [Ratio] 33.4 kg/m2 33.4 k g/m2 [facility] ([facility] Oxygen saturation in Arterial blood by Pulse oximetry 97 % 97 % [facility] ([facility] Systolic blood pressure 130 mm[Hg] 130 mm[Hg] M EDENT ([facility] Diastolic blood pressure 84 mm[Hg] 84 mm[Hg] [facility] ([facility] Body temperature 97.0 [degF] 97.0 [degF] [facility] ([facility] Heart rate 77 /min 77 /min [facility] ([facility] Respiratory rate 16 /min 16 /min MED[facility] ( [facility] Body height 75 [in_i] 75 [in_i] MEDENT ([facility] 6'3" Body weight 267.00 [lb_av] 267.00 [lb_av] MEDEN T ([facility] [place] body weight 196 [lb_av] 196 [lb_av] MEDEN T ([facility] Body mass index (BMI) [Ratio] 33.4 kg/m2 33.4 k g/m2 [facility] ([facility] Oxygen saturation in Arterial blood by Pulse oximetry 97 % 97 % [facility] ([facility] Systolic blood pressure 140 mm[Hg] 140 mm[Hg] M EDENT ([facility] Diastolic blood pressure 80 mm[Hg] 80 mm[Hg] [facility] ([facility] Body temperature 97.6 [degF] 97.6 [degF] [facility] ([facility] Heart rate 74 /min 74 /min [facility] ([facility] Respiratory rate 16 /min 16 /min MEDENT ( [facility] Body height 75 [in_i] 75 [in_i] MEDENT ([facility] 6'3" Body weight 265.00 [lb_av] 265.00 [lb_av] MEDEN T ([facility] [place] body weight 196 [lb_av] 196 [lb_av] MEDEN T ([facility] Body mass index (BMI) [Ratio] 33.1 kg/m2 33.1 k g/m2 MEDENT ([facility] Oxygen saturation in Arterial blood by Pulse oximetry 96 % 96 % MEDENT ([facility] Systolic blood pressure 162 mm[Hg] 162 mm[Hg] M EDENT ([facility] Diastolic blood pressure 94 mm[Hg] 94 mm[Hg] MEDENT ([facility] Systolic blood pressure 156 mm[Hg] 156 mm[Hg] M EDENT ([facility] repeat Diastolic blood pressure 84 mm[Hg] 84 mm[Hg] MEDENT ([facility] repeat Body temperature 99.0 [degF] 99.0 [degF] MEDENT ([facility] Heart rate 86 /min 86 /min MED[facility] ([facility] Respiratory rate 18 /min 18 /min MEDENT ( [facility] Body height 75 [in_i] 75 [in_i] MEDENT ([facility] 6'3" Body weight 265.00 [lb_av] 265.00 [lb_av] MEDEN T ([facility] [place] body weight 196 [lb_av] 196 [lb_av] MEDEN T ([facility] Body mass index (BMI) [Ratio] 33.1 kg/m2 33.1 k g/m2 MED[facility] ([facility] Oxygen saturation in Arterial blood by Pulse oximetry 97 % 97 % MED[facility] ([facility]
--- OUTSIDE RECORDS SUMMARY | 2021-03-05 09:19 | CCD | Continuity of Care Document ---
Author Author Celso EPOPLES D.O. Organization Unknown Address [address] [place] [id number] Phone [phone] Care Team Providers Care Surgical Supervisor Name Role Phone [facility] - Orthopedic/Phys/Osteo AUTM [phone] Problems Active Problems Provider Date Psoriasis Jovan [...] SIG Qnty Indications Ordering Provide r Date [employer] Covid-19 Vaccine 30mcg/0.3ML Suspension botH Kaushik Peoples [...] 7.5-200mg Ta blets 1 by mouth bid/prn (#[id number]) 30tabs Scot Frazier, FAAFP 07/11/2020 - 07/11/2020 Hydrocodone-Acetaminophen 7.5-325mg Tablets 1 tab by mouth three times a day as need ed for pain. do not drive or operate equipment if taking ([id number]) 21tabs Kaushik Peoples D.O., FAAFP 07/11/2020 - 08/15/2020 Butalbital/Acetaminophen/Caffeine 50-325-40mg Capsules 1-2 po tid 30caps Kaushik Pepoles D.O., FAAFP 07/10/2020 - 07/11/2020 Immunizations CPT Code Status Date Vaccine Lot # [id number] Given 02/01/2020 Influenza Virus Vaccine, Quadrivalent, Slit Virus, Im Use 3Y & Up [id number] 57985 Given 02/17/2018 Influenza Virus Vaccine, Quadrivalent, Slit Virus, Im Use 3Y & Up [id number] 32938 Given 01/14/2017 Influenza Virus Vaccine, Quadrivalent, Slit Virus, Im Use 3Y & Up [id number] 69937 Given 04/30/2016 Influenza Virus Vaccine, Quadrivalent, Slit Virus, Im Use 3Y & Up [id number] 38289 Given 03/05/2015 Influenza Vaccin e (Fluzone) 3Yrs Of Age Or Older Medicare Plans [id number] 90709 Given 05/03/2014 Pneumococcal Immunization [id number] Q2037 Given 01/30/2014 Influenza Vaccin e (Fluvirin) 3Yrs Of Age Or Older Medicare Plans [id number] 31586 Given 02/02/2013 Influenza Vaccin e (Fluzone) 3Yrs Of Age Or Older Medicare Plans 03820 Given 02/02/2013 Influenza Virus Vac. Split Virus Individuals 3 Years And Above [id number] 70234 Given 03/17/2012 Influenza Virus Vac. Split Virus Individuals 3 Years And Above [id number] 28614 Given 02/23/2011 Influenza Virus Vac. Split Virus Individuals 3 Years And Above [id number] [id number] Given 03/27/2010 Influenza Virus Vac. Split Virus Individuals 3 Years And Above [id number] Vital Signs Date Vital Result Comment 11/28/2020 8:50am BP Systolic 126 mmHg BP Diastolic 82 mmHg Body Temperature 98.0 F Heart Rate 78 /min Respiratory Rate 16 /min Height 75 inches 6'3" Weight 263.00 lb [place] Body Weight 196 lb BMI (Body Mass Index) 32.9 kg/m2 O2 % BldC Oximetry 98 % 08/15/2020 8:47am BP Systolic 132 mmHg BP Diastolic 84 mmHg Body Temperature 97.8 F Heart Rate 68 /min Respiratory Rate 16 /min Height 75 inches 6'3" Weight 263.00 lb [place] Body Weight 196 lb BMI (Body Mass [...] eGFR 113 # Calc 2 eGFR Non-Afr. Nauruan 98 # Calc 3 Lipid Panel 11/28/2020 [facility] Chol 156 mg/dL 0 - 200 Trig 298 mg/dL High 35 - 200 HDL 39 mg/dL 35 - 55 LDL_C 58 Calc Low 75 - 129 Cho/HDL Ratio 4.0 CALC Laboratory test finding 11/28/2020 [facility] CK 95 U/L 39 - 308 Laboratory test finding 11/28/2020 [facility] Hemoglobin A1c 5.9 % 4.50-6.20 U/A DIP [facility] 11/28/2020 [facility] Color Urine YELLOW Yellow Appearance CLEAR Clear Specific [place] 1.030 1.00-1.03 PH Urine 5.5 5.0-8.0 Glucose [...] eGFR 113 # Calc 4 eGFR Non-Afr. Nauruan 98 # Calc 5 Lipid Panel 08/15/2020 [facility] Chol 167 mg/dL 0 - 200 Trig 356 mg/dL High 35 - 200 HDL 40 mg/dL 35 - 55 LDL_C 56 Calc Low 75 - 129 Cho/HDL Ratio 4.2 Calc Laboratory test finding 08/15/2020 [facility] CK 83 U/L 39 - 308 Hemoglobin A1c 5.9 % 4.40 - 6.10 U/A DIP FPA 08/15/2020 [facility] Color Urine YELLOW Yellow Appearance CLEAR Clear Specific [place] 1.030 1.00-1.03 PH Urine 6.0 5.0-8.0 Glucose [...] HCT IS 5% LESS SOURCE FOR DATA: [employer] 1800 OPERATION MANUAL( AUTOMATED BLOOD COUNTS AND [...] CKD-EPI Procedures Date Code Description Status 11/28/2020 25418 Office/Outpatient Established Mo d MDM 30-39 Min Completed 08/15/2020 06349 Office/Outpatient Established Mo d MDM 30-39 Min Completed 07/19/2020 67051 Office/Outpatient Established Lo w MDM 20-29 Min Completed 07/10/2020 03142 Office/Outpatient Established Lo w MDM 20-29 Min Completed Medical Devices Description No Information Available Encounters Type Date Location Provider Dx Diagnosis Office Visit 11/28/2020 8:45a [facility] Geno Frazier, FAAFP R73.01 Impaired fasting glucose E78.5 Hyperlipidemia, unspecified I10 Essential (primary) hyperten jarad K21.9 Gastro-esophageal reflux dis ease without esophagitis Z72.0 Tobacco use F33.8 Other recurrent depressive d isorders Office Visit 08/15/2020 8:45a [facility] Geno Frazier, FAAFP R73.01 Impaired fasting glucose E78.5 Hyperlipidemia, unspecified I10 Essential (primary) hyperten jarad K21.9 Gastro-esophageal reflux dis ease without esophagitis Z72.0 Tobacco use F33.8 Other recurrent depressive d isorders Office Visit 07/19/2020 11:15a [facility] Ryan Sepulveda, RP A S23.41xS Sprain of ribs, sequela Office Visit 07/10/2020 10:20a [facility] Ryan Sepulveda, RP A S23.41xA Sprain [...] 03/04/2021 8:45 am - Kaushik Peoples D.O., [facility] Functional Status Description No Information Available Mental Status Description No Information Available Referrals Description No Information Available
[2021-03-05] MEDS ORDERED: propofoL 500 MG/50 ML VIAL As Ordered ONE (11:42)
[2021-03-05] MEDS ORDERED: LIDOCAINE 2% 100MG/5ML SDV (FOR ANES.) As Ordered ONE (11:42)
--- NOTE | 2021-03-05 11:45 | ROOR ---
Patient Name: Celso Wood Procedure Date: 03/05/2021 11:15 AM Date of : 1955 Age: 65 Room: [facility] Gender: Male Note Status: Finalized Procedure: Total Colonoscopy to Cecum + Cold Snare Polypectomy + Biopsy Polypectomy Indications: High risk colon cancer surveillance: Personal history of colonic polyps, Last colonoscopy: 2018 Providers: Nemesio De Leon MD Referring MD: NIKOLAI PEOPLES DO Requesting Provider: Medicines: Monitored Anesthesia Care Complications: No immediate complications. Procedure: Pre-Anesthesia Assessment: - The heart rate, respiratory rate, oxygen saturations, blood pressure, adequacy of pulmonary ventilation, and response to care were monitored throughout the procedure. The Colonoscope was introduced through the anus and advanced to the cecum, identified by appendiceal orifice and ileocecal valve. The colonoscopy was performed without difficulty. The patient tolerated the procedure well. The quality of the bowel preparation was excellent. Findings: The perianal and digital rectal examinations were normal. Multiple small and large-mouthed diverticula were found in the recto-sigmoid colon, sigmoid colon and descending colon. A small polyp was found at 40 cm proximal to the anus. The polyp was sessile. The polyp was removed with a cold snare. Resection and retrieval were complete. A small polyp was found at 60 cm proximal to the anus. The polyp was sessile. The polyp was removed with a cold biopsy forceps. Resection and retrieval were complete. A small polyp was found in the cecum. The polyp was sessile. The polyp was removed with a cold biopsy forceps. Resection and retrieval were complete. A small polyp was found in the appendiceal orifice. The polyp was sessile. The polyp was removed with a cold biopsy forceps. Polyp resection was incomplete. The resected tissue was retrieved. The exam was otherwise without abnormality on direct and retroflexion views. Impression: - Diverticulosis in the recto-sigmoid colon, in the sigmoid colon and in the descending colon. - One small polyp at 40 cm proximal to the anus, removed with a cold snare. Resected and retrieved. - One small polyp at 60 cm proximal to the anus, removed with a cold biopsy forceps. Resected and retrieved. - One small polyp in the cecum, removed with a cold biopsy forceps. Resected and retrieved. - One small polyp at the appendiceal orifice, removed with a cold biopsy forceps. Incomplete resection. Resected tissue retrieved. - The examination was otherwise normal on direct and retroflexion views. - The exam was otherwise normal to the cecum. Recommendation: - Patient has a contact number available for emergencies. The signs and symptoms of potential delayed complications were discussed with the patient. Return to normal activities tomorrow. Written discharge instructions were provided to the patient. - High fiber diet. - Discharge patient to home. - Continue present medications. - Await pathology results. - Telephone GI clinic for pathology results in 1 week. - Repeat colonoscopy for surveillance based on pathology results. - Return to referring physician. - The findings and recommendations were discussed with the patient. Procedure Code(s): --- Professional --- 54541, Colonoscopy, flexible; with removal of tumor(s), polyp(s), or other lesion(s) by snare technique [id number], 59, Colonoscopy, flexible; with biopsy, single or multiple Diagnosis Code(s): --- Professional --- Z86.010, Personal history of colonic polyps K63.5, Polyp of colon K57.30, Diverticulosis of large intestine without perforation or abscess without bleeding CPT copyright 2019 [employer]. All rights reserved. The codes documented in this report are preliminary and upon wool and pelt grader review may be revised to meet current compliance requirements. Nemesio De Leon MD Nemesio De Leon MD 03/05/2021 11:44:52 AM Electronically signed by Nemesio De Leon MD Number of Addenda: 0 Note Initiated On: 03/05/2021 11:15 AM Estimated Blood Loss: Estimated blood loss: none.
[2021-03-05 12:02] VITALS: BP 131/71
== END 2021-03-05 12:03 | disposition home or self-care (01) ==
LOC: M OPP 09:14
PROVIDERS: ATTEND Internal Medicine Gastroenterology
DX: Z12.11 Encounter for screening for malignant neoplasm of colon (principal); Z86.010 Personal history of colon polyps; D12.6 Benign neoplasm of colon, unspecified; K57.30 Diverticulosis of large intestine without perforation or abscess without bleeding; Z80.41 Family history of malignant neoplasm of ovary; Z80.3 Family history of malignant neoplasm of breast; Z79.82 Long term (current) use of aspirin; Z79.899 Other long term (current) drug therapy; Z88.0 Allergy status to penicillin; F17.210 Nicotine dependence, cigarettes, uncomplicated

== ENCOUNTER → 2021-07-16 | Outpatient (CLI) | payer MEDICARE ==
[~2021-07-16] MED LIST changes: -NS 1,000 ML IV ONE
== END ==
LOC: M RAD 14:40
PROVIDERS: ATTEND Family Medicine
DX: Z72.0 Tobacco use (principal)

== ENCOUNTER → 2022-12-02 | Outpatient (CLI) | payer MEDICARE | LOC: M RAD 06:45 | PROVIDERS: ATTEND Family Medicine | DX: Z87.891 Personal history of nicotine dependence (principal) ==

== ENCOUNTER → 2023-08-17 | Outpatient (CLI) | payer MEDICARE ==
[2023-08-17 12:19] LABS: BASO # 0.1 10^3/uL (0.0-0.2); BASO % 0.9 % (0.0-1.0); EOS # 0.2 10^3/uL (0.0-0.5); EOS % 3.3 % (0.0-3.0); HEMATOCRIT 41.2 % (42.0-52.0); HEMOGLOBIN 13.1 g/dl (13.5-17.5); LYMPH # 1.5 10^3/uL (1.5-5.0); LYMPH % 20.7 % (24.0-44.0); MEAN CORPUSCULAR HGB CONC 31.8 g/dl (32.0-36.5); MEAN CORPUSCULAR VOLUME 94.3 fl (80.0-96.0); MONO # 0.5 10^3/uL (0.0-0.8); MONO % 6.4 % (2.0-8.0); NEUTROPHILS # 4.8 10^3/uL (1.5-8.5); NEUTROPHILS % 68.3 % (36.0-66.0); PLATELET COUNT, AUTOMATED 222 10^3/uL (150-450); RED BLOOD COUNT 4.37 10^6/uL (4.30-6.10); WHITE BLOOD COUNT 7.1 10^3/uL (4.0-10.0)
[2023-08-17 12:22] LABS: ALBUMIN 3.3 G/DL (3.2-5.2); ALKALINE PHOSPHATASE 124 U/L (46-116); ALT/SGPT 36 U/L (7.0-40); AST/SGOT 26 U/L (<34); BILIRUBIN,TOTAL 0.4 MG/DL (0.3-1.2); BLOOD UREA NITROGEN 27 MG/DL (9-23); CALCIUM LEVEL 9.4 MG/DL (8.3-10.6); CARBON DIOXIDE LEVEL 30 MMOL/L (20-31); CHLORIDE LEVEL 104 MMOL/L (98-107); CREATININE FOR GFR 0.78 MG/DL (0.70-1.30); GLOMERULAR FILTRATION RATE > 60.0 (>49); GLUCOSE, FASTING 238 MG/DL (74-106); POTASSIUM SERUM 3.8 MMOL/L (3.5-5.1); SODIUM LEVEL 140 MMOL/L (136-145); TOTAL PROTEIN 6.8 G/DL (5.7-8.2)
== END ==
LOC: M WUC 09:38
PROVIDERS: ATTEND Physician Assistant
DX: R06.02 Shortness of breath (principal)

== ENCOUNTER 2023-08-29 22:35 | Inpatient (IN) | payer OTHER, MEDICAID ==
[~2023-08-29] VITALS: Ht 190.5 cm; Wt 114.7 kg
[2023-08-30] VITALS (10 sets, daily range): BP systolic 121–134; BP diastolic 71–97; TEMP 97–97.4; O2SAT 88–98
[2023-08-30 00:07] LABS: BASO # 0.1 10^3/uL (0.0-0.2); BASO % 0.8 % (0.0-1.0); EOS # 0.2 10^3/uL (0.0-0.5); HEMATOCRIT 40.1 % (42.0-52.0); HEMOGLOBIN 12.9 g/dl (13.5-17.5); LYMPH # 1.8 10^3/uL (1.5-5.0); LYMPH % 15.2 % (24.0-44.0); MEAN CORPUSCULAR HEMOGLOBIN 30.1 pg (27.0-33.0); MEAN CORPUSCULAR HGB CONC 32.2 g/dl (32.0-36.5); MEAN CORPUSCULAR VOLUME 93.7 fl (80.0-96.0); MONO # 0.7 10^3/uL (0.0-0.8); MONO % 5.8 % (2.0-8.0); NEUTROPHILS % 75.4 % (36.0-66.0); PLATELET COUNT, AUTOMATED 175 10^3/uL (150-450); RED BLOOD COUNT 4.28 10^6/uL (4.30-6.10)
[2023-08-30 00:09] LABS: ALBUMIN 3.2 G/DL (3.2-5.2); ALKALINE PHOSPHATASE 144 U/L (46-116); ALT/SGPT 66 U/L (7.0-40); AST/SGOT 56 U/L (<34); BILIRUBIN,DIRECT 0.3 MG/DL (<0.4); BILIRUBIN,TOTAL 0.6 MG/DL (0.3-1.2); BLOOD UREA NITROGEN 28 MG/DL (9-23); CALCIUM LEVEL 9.1 MG/DL (8.3-10.6); CARBON DIOXIDE LEVEL 32 MMOL/L (20-31); CHLORIDE LEVEL 102 MMOL/L (98-107); CK-MB VALUE MASS 1.9 NG/ML (<3.6); CPK CREATINE PHOSPHOKINASE 70 U/L (46-171); CREATININE FOR GFR 0.79 MG/DL (0.70-1.30); GLOMERULAR FILTRATION RATE > 60.0 (>49); GLUCOSE, FASTING 177 MG/DL (74-106); MB/CK RELATIVE INDEX 2.71 (< OR =4); POTASSIUM SERUM 3.6 MMOL/L (3.5-5.1); SODIUM LEVEL 138 MMOL/L (136-145); TOTAL PROTEIN 6.7 G/DL (5.7-8.2)
[2023-08-30 00:15] LABS: RSV AMPLIFICATION NEGATIVE (NEGATIVE)
[2023-08-30 02:58] LABS: CK-MB VALUE MASS 2.3 NG/ML (<3.6)
[2023-08-30 03:00] LABS: MB/CK RELATIVE INDEX 2.77 (< OR =4)
[2023-08-30] MEDS: ASPIRIN 81MG CHEW TABLET PO ONE (06:48)
[2023-08-30] MEDS: FUROSEMIDE 40MG/4ML VIAL IV ONE (06:49)
[2023-08-30] MEDS: methylPREDNISolone 125MG 2ML VIAL IV ONE (06:49)
[2023-08-30] MEDS: METOPROLOL SUCC (TopROL XL) 100MG *XL* TAB PO ONE (06:50)
[2023-08-30] MEDS: IPRATROPIUM 0.5MG/ALBUTEROL 2.5MG INH SOL UD 3ML (DUONEB) NEB SCH (07:33)
[2023-08-30] MEDS ORDERED: FUROSEMIDE 40 MG TAB PO SCH (09:00)
[2023-08-30] MEDS ORDERED: MED REC IN PROGRESS XX SCH (10:35)
[2023-08-30] MEDS: METOPROLOL 5 MG/5 ML VIAL IV SCH (11:05)
[2023-08-30] MEDS ORDERED: DEXTROSE 50% 50ML SYRINGE IV PRN (11:20)
[2023-08-30] MEDS ORDERED: GLUCOSE 4GM CHEW TABLET PO PRN (11:20)
[2023-08-30] MEDS ORDERED: GLUCAGON INJ 1MG VIAL SC PRN (11:20)
[2023-08-30] MEDS: ACETAMINOPHEN TAB 650MG DOSE (2X325MG) PO PRN (11:41)
[2023-08-30] MEDS ORDERED: PRED20TA PO (12:12)
[2023-08-30] MEDS ORDERED: ATOR40TA75 PO (12:12)
[2023-08-30] MEDS ORDERED: PRED10TA2 PO (12:12)
[2023-08-30] MEDS ORDERED: ALBU8.5H INH (12:13)
[2023-08-30] MEDS ORDERED: HOME MED LIST COMPLETE! XX SCH (12:15)
[2023-08-30 12:26] LABS: BASO % 0.4 % (0.0-1.0); EOS % 0.1 % (0.0-3.0); HEMATOCRIT 39.8 % (42.0-52.0); LYMPH # 0.6 10^3/uL (1.5-5.0); LYMPH % 8.2 % (24.0-44.0); MEAN CORPUSCULAR HGB CONC 32.7 g/dl (32.0-36.5); MEAN CORPUSCULAR VOLUME 91.9 fl (80.0-96.0); MONO # 0.1 10^3/uL (0.0-0.8); MONO % 0.8 % (2.0-8.0); NEUTROPHILS # 6.5 10^3/uL (1.5-8.5); NEUTROPHILS % 90.1 % (36.0-66.0); PLATELET COUNT, AUTOMATED 181 10^3/uL (150-450); RED BLOOD COUNT 4.33 10^6/uL (4.30-6.10); WHITE BLOOD COUNT 7.2 10^3/uL (4.0-10.0)
[2023-08-30 12:54] LABS: ALKALINE PHOSPHATASE 144 U/L (46-116); ALT/SGPT 65 U/L (7.0-40); AST/SGOT 51 U/L (<34); BILIRUBIN,TOTAL 0.8 MG/DL (0.3-1.2); BLOOD UREA NITROGEN 29 MG/DL (9-23); CALCIUM LEVEL 8.9 MG/DL (8.3-10.6); CARBON DIOXIDE LEVEL 29 MMOL/L (20-31); CHLORIDE LEVEL 102 MMOL/L (98-107); CREATININE FOR GFR 0.67 MG/DL (0.70-1.30); GLOMERULAR FILTRATION RATE > 60.0 (>49); GLUCOSE, FASTING 218 MG/DL (74-106); POTASSIUM SERUM 3.7 MMOL/L (3.5-5.1); SODIUM LEVEL 140 MMOL/L (136-145); TOTAL PROTEIN 6.7 G/DL (5.7-8.2)
[2023-08-30] MEDS ORDERED: ALBUTEROL 90 MCG/ACT 8GM HFA INHALER INH PRN (13:10)
[2023-08-30] MEDS: METOPROLOL TART 25 MG TABLET PO STA (14:07)
[2023-08-30] MEDS: PANTOPRAZOLE 40MG TAB (PROTONIX) PO SCH (14:07)
[2023-08-30] MEDS: DAPAGLIFLOZIN PROPANEDIOL 10MG TABLET (FARXIGA) PO SCH (14:08)
[2023-08-30] MEDS: ATORVASTATIN 20 MG TAB PO SCH (14:08)
[2023-08-30] MEDS: ASPIRIN 81MG ENTERIC TABLET PO SCH (14:09)
[2023-08-30] MEDS: APIXABAN 5 MG TAB (ELIQUIS) PO SCH (14:09)
[2023-08-30] MEDS: INSULIN LISPRO (NovoLOG) PER UNIT SC SCH ×2 (14:10→20:06)
[2023-08-30 14:13] LABS: THYROID STIMULATING HORMONE 0.954 uIU/ML (0.55-4.78)
[2023-08-30] MEDS: METOPROLOL 5 MG/5 ML VIAL IV STA (15:57)
[2023-08-30] MEDS: POTASSIUM CHLORIDE 10MEQ SR TABLET PO ONE (15:59)
[2023-08-30] MEDS ORDERED: NICOTINE POLACRILEX 2 MG GUM PO PRN (16:00)
[2023-08-30] MEDS: MAGNESIUM GLUCONATE 500 MG TAB PO SCH (16:03)
[2023-08-30] MEDS: PARoxetine 10MG TABLET PO SCH (17:12)
[2023-08-30] MEDS: MAG SULF 1GM/100ML (MAG RUN) 1 GM in IV 1 EA IV SCH (20:05)
[2023-08-30] MEDS: FUROSEMIDE 40MG/4ML VIAL IV SCH (20:05)
[2023-08-30] MEDS: METOPROLOL TART 25 MG TABLET PO SCH (20:05)
[2023-08-30] MEDS ORDERED: METOPROLOL TART 25 MG TABLET PO SCH (22:00)
[2023-08-31] VITALS (16 sets, daily range): BP systolic 131–165; BP diastolic 67–92; TEMP 96.7–97.4; O2SAT 92–97
[2023-08-31 05:38] LABS: BASO % 0.2 % (0.0-1.0); EOS % 0.1 % (0.0-3.0); HEMATOCRIT 38.1 % (42.0-52.0); HEMOGLOBIN 12.1 g/dl (13.5-17.5); LYMPH # 1.2 10^3/uL (1.5-5.0); LYMPH % 11.2 % (24.0-44.0); MEAN CORPUSCULAR HEMOGLOBIN 30.1 pg (27.0-33.0); MEAN CORPUSCULAR HGB CONC 31.8 g/dl (32.0-36.5); MEAN CORPUSCULAR VOLUME 94.8 fl (80.0-96.0); MONO # 0.8 10^3/uL (0.0-0.8); MONO % 7.1 % (2.0-8.0); NEUTROPHILS # 8.8 10^3/uL (1.5-8.5); NEUTROPHILS % 81.1 % (36.0-66.0); PLATELET COUNT, AUTOMATED 166 10^3/uL (150-450); RED BLOOD COUNT 4.02 10^6/uL (4.30-6.10); WHITE BLOOD COUNT 10.9 10^3/uL (4.0-10.0)
[2023-08-31 06:03] LABS: BLOOD UREA NITROGEN 36 MG/DL (9-23); CALCIUM LEVEL 8.5 MG/DL (8.3-10.6); CARBON DIOXIDE LEVEL 34 MMOL/L (20-31); CHLORIDE LEVEL 105 MMOL/L (98-107); CREATININE FOR GFR 0.86 MG/DL (0.70-1.30); GLOMERULAR FILTRATION RATE > 60.0 (>49); GLUCOSE, FASTING 173 MG/DL (74-106); MAGNESIUM LEVEL 2.3 MG/DL (1.8-2.4); POTASSIUM SERUM 4.4 MMOL/L (3.5-5.1); SODIUM LEVEL 143 MMOL/L (136-145)
[2023-08-31] MEDS ORDERED: ELIQ5TAB PO (10:01)
[2023-08-31] MEDS ORDERED: FARX1TAB3 PO (10:01)
[2023-08-31] MEDS ORDERED: FURO40TA2 PO (10:01)
[2023-08-31] MEDS ORDERED: IRBE150T27 PO (10:01)
[2023-08-31] MEDS ORDERED: METF-838 PO (10:05)
[2023-08-31] MEDS: METOPROLOL SUCC (TopROL XL) 100MG *XL* TAB PO SCH (10:29)
== END 2023-08-31 12:41 | disposition home or self-care (01) | DRG 291 ==
LOC: EDBD 22:35 → M ED 22:35 → M ED INP 08-30 11:13 → ENRESERV 08-30 12:44 → M PCU 08-30 14:23
PROVIDERS: ADMIT Internal Medicine; ATTEND Internal Medicine
PROC: B246ZZZ Ultrasonography of Right and Left Heart (ICD-10-PCS; principal; 2023-08-31)
DX: I11.0 Hypertensive heart disease with heart failure (principal); I50.43 Acute on chronic combined systolic (congestive) and diastolic (congestive) heart failure; I48.91 Unspecified atrial fibrillation; E78.5 Hyperlipidemia, unspecified; J44.9 Chronic obstructive pulmonary disease, unspecified; E11.9 Type 2 diabetes mellitus without complications; K21.9 Gastro-esophageal reflux disease without esophagitis; F39 Unspecified mood [affective] disorder; F17.210 Nicotine dependence, cigarettes, uncomplicated; L40.50 Arthropathic psoriasis, unspecified; Z90.49 Acquired absence of other specified parts of digestive tract; Z79.82 Long term (current) use of aspirin; Z79.52 Long term (current) use of systemic steroids; Z79.899 Other long term (current) drug therapy; Z88.0 Allergy status to penicillin

== ENCOUNTER 2024-03-08 09:10 | Day surgery (SDC) | payer OTHER, MEDICAID ==
[~2024-03-08] VITALS: Ht 190.5 cm; Wt 113.4 kg
[~2024-03-08 09:10] MED LIST changes: +ALBU8.5H INH; +AMIO200T37 PO; +ATOR40TA75 PO; +DAPA10TA5 PO; +ELIQ5TAB PO; +FARX1TAB3 PO; +FURO40TA2 PO; +IRBE150T27 PO; +LIDOCAINE 2% 100MG/5ML SDV (FOR ANES.) As Ordered ONE; +METF-838 PO; +PRED10TA2 PO; +PRED20TA PO; +propofoL 200 MG/20 ML VIAL As Ordered ONE
[2024-03-08] MEDS ORDERED: hydrALAZINE 20MG/ML 1ML VIAL As Ordered ONE (10:39)
[2024-03-08 11:15] VITALS: BP 135/90; TEMP 97.5; O2SAT 96
== END 2024-03-08 11:30 | disposition home or self-care (01) ==
LOC: M OPP 09:10
PROVIDERS: ATTEND Internal Medicine Gastroenterology
DX: Z12.11 Encounter for screening for malignant neoplasm of colon (principal); D12.2 Benign neoplasm of ascending colon; D12.5 Benign neoplasm of sigmoid colon; K64.0 First degree hemorrhoids; K57.30 Diverticulosis of large intestine without perforation or abscess without bleeding; Z86.0100 Personal history of colon polyps, unspecified; E11.9 Type 2 diabetes mellitus without complications; I48.91 Unspecified atrial fibrillation; I10 Essential (primary) hypertension; E78.00 Pure hypercholesterolemia, unspecified; J44.9 Chronic obstructive pulmonary disease, unspecified; N40.0 Benign prostatic hyperplasia without lower urinary tract symptoms; Z79.01 Long term (current) use of anticoagulants; Z79.84 Long term (current) use of oral hypoglycemic drugs; Z79.899 Other long term (current) drug therapy; Z88.0 Allergy status to penicillin; Z87.891 Personal history of nicotine dependence
CPT/HCPCS: 45385; 88305; J0360

== ENCOUNTER 2024-04-03 19:28 | Emergency (ER) | payer OTHER, MEDICAID ==
[~2024-04-03] VITALS: Ht 177.8 cm; Wt 118.0 kg
[~2024-04-03 19:28] MED LIST changes: -LIDOCAINE 2% 100MG/5ML SDV (FOR ANES.) As Ordered ONE; -propofoL 200 MG/20 ML VIAL As Ordered ONE
[2024-04-03 19:39] VITALS: TEMP 97.1
[2024-04-03 19:58] LABS: VENOUS HCO3 29.5 MMOL/L (23.0-27.0); VENOUS O2 SATURATION 57.2 % (60.0-80.0); VENOUS PARTIAL PRESSURE CO2 58.1 mmHg (38.0-50.0); VENOUS PARTIAL PRESSURE O2 32.9 mmHg (30.0-50.0); VENOUS PH 7.324 UNITS (7.330-7.430); VENOUS STANDARD HCO3 25.2 MMOL/L; VENOUS TOTAL CO2 31.3 MMOL/L (24.0-28.0)
[2024-04-03 20:01] LABS: BASO # 0.1 10^3/uL (0.0-0.2); BASO % 1.1 % (0.0-1.0); EOS # 0.2 10^3/uL (0.0-0.5); HEMOGLOBIN 13.2 g/dl (13.5-17.5); LYMPH # 1.4 10^3/uL (1.5-5.0); LYMPH % 22.5 % (24.0-44.0); MEAN CORPUSCULAR HEMOGLOBIN 29.9 pg (27.0-33.0); MEAN CORPUSCULAR VOLUME 90.7 fl (80.0-96.0); MONO # 0.6 10^3/uL (0.0-0.8); MONO % 8.8 % (2.0-8.0); NEUTROPHILS # 4.1 10^3/uL (1.5-8.5); NEUTROPHILS % 64.1 % (36.0-66.0); PLATELET COUNT, AUTOMATED 192 10^3/uL (150-450); RED BLOOD COUNT 4.41 10^6/uL (4.30-6.10); WHITE BLOOD COUNT 6.4 10^3/uL (4.0-10.0)
[2024-04-03 20:14] LABS: INR 0.97; PROTHROMBIN TIME 13.1 SECONDS (12.5-14.5)
[2024-04-03 20:24] LABS: ABG BASE EXCESS -0.8 (-2.0-2.0); ABG HCO3 24.7 MMOL/L (22.0-26.0); ABG O2 SATURATION 98.1 % (95.0-99.0); ABG PARTIAL PRESSURE CO2 44.4 mmHg (35.0-45.0); ABG PARTIAL PRESSURE O2 110.3 mmHg (75.0-100.0); ABG STANDARD HCO3 23.8 MMOL/L. (22.0-26.0); ABG TOTAL CO2 26.1 MMOL/L (23.0-31.0); ABG pH (ARTERIAL) 7.364 UNITS (7.350-7.450)
[2024-04-03 20:36] LABS: CK-MB VALUE MASS < 1.0 NG/ML (<3.6); LIPASE 43 U/L (12-53)
[2024-04-03 20:37] LABS: ETHYL ALCOHOL (ETHANOL) 0.232 % (0.000-0.010)
[2024-04-03 20:37] LABS: APPEARANCE, URINE CLEAR (CLEAR); BACTERIA, URINE AUTO NEGATIVE (NEGATIVE); BILIRUBIN, URINE AUTO NEGATIVE (NEGATIVE); BLOOD, URINE BLOOD NEGATIVE (NEGATIVE); COLOR, URINE STRAW (YELLOW); GLUCOSE, URINE (UA) AUTO NEGATIVE (NEGATIVE); KETONE, URINE AUTO NEGATIVE (NEGATIVE); LEUKOCYTE ESTERASE, URINE AUTO NEGATIVE (NEGATIVE); NITRITE, URINE AUTO NEGATIVE (NEGATIVE); PROTEIN, URINE AUTO 2+ mg/dL (NEGATIVE); RBC, URINE AUTO 0 /HPF (0-3); SPECIFIC GRAVITY URINE AUTO 1.008 (1.002-1.035); SQUAMOUS EPITHELIAL CELL UR AU 0 /HPF (0-6); UROBILINOGEN, URINE AUTO 0.2 mg/dL (0.0-2.0); WBC, URINE AUTO 0 /HPF (0-3)
[2024-04-03 20:38] LABS: AMYLASE 71 U/L (30-118); CPK CREATINE PHOSPHOKINASE 60 U/L (46-171); MB/CK RELATIVE INDEX 1.66 (< OR =4)
[2024-04-03 20:39] LABS: ALBUMIN 3.1 G/DL (3.2-5.2); ALKALINE PHOSPHATASE 121 U/L (40-129); ALT/SGPT 34 U/L (7.0-40); AST/SGOT 24 U/L (<34); BILIRUBIN,DIRECT 0.1 MG/DL (<0.4); BILIRUBIN,TOTAL 0.2 MG/DL (0.3-1.2); BLOOD UREA NITROGEN 17 MG/DL (9-23); CARBON DIOXIDE LEVEL 31 MMOL/L (20-31); CHLORIDE LEVEL 105 MMOL/L (98-107); GLOMERULAR FILTRATION RATE > 60.0 (>42); GLUCOSE, FASTING 123 MG/DL (74-106); POTASSIUM SERUM 3.6 MMOL/L (3.5-5.1); SODIUM LEVEL 142 MMOL/L (136-145); TOTAL PROTEIN 6.7 G/DL (5.7-8.2)
[2024-04-03 20:59] LABS: AMPHETAMINES LEVEL URINE NEGATIVE (NEGATIVE); BARBITURATES URINE NEGATIVE (NEGATIVE); BENZODIAZEPINES URINE NEGATIVE (NEGATIVE); COCAINE METABOLITE URINE NEGATIVE (NEGATIVE); METHADONE URINE NEGATIVE (NEGATIVE); OPIATES URINE NEGATIVE (NEGATIVE); PHENCYCLIDINE URINE NEGATIVE (NEGATIVE)
[2024-04-03 21:00] VITALS: BP 210/100
[2024-04-03] MEDS: hydrALAZINE 20MG/ML 1ML VIAL IV ONE (21:00)
[2024-04-03 21:02] LABS: CANNABINOIDS URINE POSITIVE (NEGATIVE)
[2024-04-04 00:45] VITALS: BP 127/58; O2SAT 93
== END 2024-04-04 01:21 | disposition home or self-care (01) ==
LOC: M ED 19:28 → EDBD 19:28 → M ED 04-04 01:21
DX: F10.120 Alcohol abuse with intoxication, uncomplicated (principal); I25.2 Old myocardial infarction; J44.9 Chronic obstructive pulmonary disease, unspecified; E11.9 Type 2 diabetes mellitus without complications; E78.5 Hyperlipidemia, unspecified; I10 Essential (primary) hypertension; Z88.0 Allergy status to penicillin; Z91.09 Other allergy status, other than to drugs and biological substances; Z79.51 Long term (current) use of inhaled steroids; Z79.01 Long term (current) use of anticoagulants; Z79.84 Long term (current) use of oral hypoglycemic drugs; Z79.899 Other long term (current) drug therapy
CPT/HCPCS: 36600; 70450; 71045; 72125; 72170; 80047; 80048; 80076; 80307; 81001; 82077; 82140; 82150; 82550; 82553; 82803; 83605; 83690; 84484; 85025; 85610; 85730; 86850; 86900; 86901; 93005; 94760; 96374; 99285; J0360

== ENCOUNTER → 2024-06-27 | Outpatient (CLI) | payer OTHER, MEDICAID | LOC: M RAD 09:23 | PROVIDERS: ATTEND Internal Medicine Critical Care Medicine | DX: F17.218 Nicotine dependence, cigarettes, with other nicotine-induced disorders (principal); R91.1 Solitary pulmonary nodule; I25.10 Atherosclerotic heart disease of native coronary artery without angina pectoris; I25.84 Coronary atherosclerosis due to calcified coronary lesion; Z90.49 Acquired absence of other specified parts of digestive tract ==